=== PATIENT | male | born 1960 | race Caucasian/White ===

== ENCOUNTER 2019-05-20 00:43 | Outpatient (CLI) | payer SELFPAY | END 2019-05-20 00:44 | disposition critical access hospital (66) | LOC: EMS 00:43 | PROVIDERS: ATTEND Surgery | DX: S21.132A Puncture wound without foreign body of left front wall of thorax without penetration into thoracic cavity, initial encounter (principal); X99.1XXA Assault by knife, initial encounter | CPT/HCPCS: A0425; A0429 ==

== ENCOUNTER 2019-05-20 00:55 | Emergency (ER) | payer MEDICAID ==
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
[2019-05-20 01:12] LABS: BASOPHILS # (AUTO) 0.1 10^3/uL (0.0-0.1); EOSINOPHILS # (AUTO) 0.2 10^3/uL (0.0-0.7); EOSINOPHILS % (AUTO) 2.9 %; HGB - HEMOGLOBIN 14.6 g/dL (14.0-18.0); LYMPHOCYTES # (AUTO) 2.7 10^3/uL (1.5-3.5); LYMPHOCYTES % (AUTO) 31.7 %; MEAN CORPUSCULAR HEMOGLOBIN 29.4 pg (27.0-31.0); MEAN CORPUSCULAR HGB CONC 33.3 g/dL (32.0-36.0); MEAN CORPUSCULAR VOLUME 88.3 fL (80.0-94.0); MONOCYTES # (AUTO) 0.9 10^3/uL (0.0-1.0); MONOCYTES % (AUTO) 10.1 %; NEUTROPHILS # (AUTO) 4.6 10^3/uL (1.5-6.6); NEUTROPHILS % (AUTO) 54.1 %; PLT - PLATELET COUNT 265 10^3/uL (130-450); RED BLOOD COUNT 4.96 10^6/uL (4.70-6.10); RED CELL DISTRIBUTION WIDTH 13.9 % (12.0-15.0); WHITE BLOOD COUNT 8.4 x10^3/uL (4.8-10.8)
[2019-05-20] MEDS ORDERED: LIDOCAINE 2%-EPI 1:100000 20 ML MDV SUBQ STA (01:13)
[2019-05-20 01:18] LABS: INR 1.1 (0.8-1.2); PT - PROTHROMBIN TIME 12.2 secs (9.9-12.6)
[2019-05-20 01:24] LABS: ALBUMIN 4.2 g/dL (3.2-5.5); ALBUMIN/GLOBULIN RATIO 1.3 (1.0-2.2); ALKALINE PHOSPHATASE 50 IU/L (42-121); ALT ALANINE AMINOTRANSFERASE 27 IU/L (10-60); AST ASPARTATE AMINOTRANSFERASE 27 IU/L (10-42); BILIRUBIN,TOTAL 0.7 mg/dL (0.2-1.0); BUN - BLOOD UREA NITROGEN 9 mg/dL (6-20); CALCIUM 9.1 mg/dL (8.5-10.3); CARBON DIOXIDE - CO2 27 mmol/L (21-32); CHLORIDE 103 mmol/L (101-111); CREATININE 0.8 mg/dL (0.6-1.2); GFR - MDRD 100 (>89); GLUCOSE 109 mg/dL (70-100); LIPASE 32 U/L (22-51); SODIUM 141 mmol/L (135-145); TOTAL PROTEIN 7.4 g/dL (6.7-8.2)
[2019-05-20 01:25] LABS: PARTIAL THROMBOPLASTIN TIME 32.7 secs (24.9-33.3)
[2019-05-20 01:30] LABS: MUDS CUTOFF CONCENTRATIONS CUTOFF CONC BELOW:
[2019-05-20 01:33] LABS: BILIRUBIN,URINE NEGATIVE (NEGATIVE); GLUCOSE, URINE (UA) NEGATIVE (NEGATIVE); KETONES,URINE (UA) NEGATIVE (NEGATIVE); LEUKOCYTE ESTERASE, URINE NEGATIVE (NEGATIVE); NITRITE,URINE NEGATIVE (NEGATIVE); OCCULT BLOOD,URINE NEGATIVE (NEGATIVE); PROTEIN,URINE 100 mg/dL (NEGATIVE); UROBILINOGEN,URINE 0.2 (NORMAL) E.U./dL (NORMAL)
[2019-05-20] MEDS ORDERED: TETANUS/DIPHTHERIA/PERTUSSIS 0.5 ML SYRINGE IM ONE (01:39)
[2019-05-20 01:40] LABS: CLARITY,URINE CLEAR (CLEAR)
[2019-05-20] MEDS ORDERED: ceFAZolin 1 GM VIAL IM STA (01:43)
[2019-05-20] MEDS ORDERED: BACITRACIN OINT TOP STA (01:44)
[2019-05-20 01:50] LABS: BACTERIA,URINE Rare /HPF (None Seen); MUCUS,URINE Marked Strands; RBC,URINE None Seen /HPF (0-5); SQUAMOUS EPITHELIAL CELL,UR RARE Squamous (<= Few)
[2019-05-20 01:51] LABS: CASTS, URINE 3-5 Hyaline Casts /LPF; COCAINE SCREEN URINE NEGATIVE (NEGATIVE); METHAMPHETAMINES SCREEN, URINE POSITIVE (NEGATIVE); SPERM,URINE PRESENT
[2019-05-20 01:52] LABS: AMPHETAMINE SCREEN,URINE POSITIVE (NEGATIVE); BENZODIAZEPINES SCREEN, URINE NEGATIVE (NEGATIVE); METHADONE SCREEN, URINE NEGATIVE (NEGATIVE); OPIATE SCREEN, URINE NEGATIVE (NEGATIVE); OXYCODONE SCREEN, URINE NEGATIVE (NEGATIVE); PROPOXYPHENE SCREEN, URINE NEGATIVE (NEGATIVE); TRICYCLIC ANTIDEPRESSANT,URINE NEGATIVE (NEGATIVE)
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
[2019-05-20 03:05] VITALS: BP 122/91
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
[2019-05-20] MEDS ORDERED: BACITRACIN OINT TOP ONE (05:27)
== END 2019-05-20 02:43 | disposition home or self-care (01) ==
LOC: EDBD → ED 00:55
DX: S21.112A Laceration without foreign body of left front wall of thorax without penetration into thoracic cavity, initial encounter (principal); X99.1XXA Assault by knife, initial encounter
CPT/HCPCS: 12001; 36415; 71045; 80053; 80306; 80320; 81001; 83690; 85025; 85610; 85730; 90471; 90715; 96372; 99284; A9270; 81003; 86850; 86900; 86901; 87086

== ENCOUNTER 2019-05-28 08:22 | Emergency (ER) | payer MEDICAID ==
--- NOTE | 2019-05-28 08:27 | ED Physician Documentation ---
History of Present Illness - Stated complaint Stated Complaint: STAPLE REMOVAL - History obtained from History obtained from: Patient - Additonal information Additional information: Patient is a 56-year-old male presenting to the ED with request of staple removal. Patient was seen several days ago for left chest wound. Patient reports that he has been unable to take antibiotics as prescribed given an insurance issue. He reports minimal pain or other complaints related to the wound. Patient does report it feels itchy, but denies significant rash, redness, or drainage. Patient denies other skin changes or complications. No other improving or worsening factors noted. Review of Systems Skin: reports: Laceration (s) PD PAST MEDICAL HISTORY - Past Medical History Past Medical History: No - Past Surgical History Past Surgical History: No - Present Medications Home Medications: Ambulatory Orders Medication Instructions Recorded Confirmed Cephalexin [Keflex] 500 mg PO Q6H #28 capsule 05/20/19 - Allergies Allergies/Adverse Reactions: Allergies Allergy/AdvReac Type Severity Reaction Status Date / Time No Known Drug Allergies Allergy Verified 05/28/19 08:30 - Social History Does the pt smoke?: Yes Smoking Status: Current every day smoker Does the pt drink ETOH?: No Does the pt have substance abuse?: Yes - Immunizations Immunizations are current?: Yes Immunizations: TDAP current <10years - POLST Patient has POLST: No PD ED PE NORMAL - Vitals Vital signs reviewed: Yes - General General: Alert and oriented X 3, No acute distress, Well developed/nourished - HEENT HEENT: Atraumatic, Moist mucous membranes - Neck Neck: Supple, no meningeal sign - Respiratory Respiratory: No respiratory distress - Derm Derm: Other (Resolving bruising to left chest along anterior mid axillary line with several sherrell in place overlying wound. Relatively nontender to the touch and without surrounding signs of infection, drainage, or other complication.) - Extremities Extremities: No deformity, No tenderness to palpate - Neuro Neuro: Alert and oriented X 3, No motor deficit, No sensory deficit - Psych Psych: Normal mood, Normal affect Results - Vitals Vitals: Vital Signs - 24 hr 05/28/19 08:28 Temperature 36 C L Heart Rate 91 Respiratory 18 Rate Blood Pressure 149/110 H O2 Saturation 99 Oxygen O2 Source Room air PD MEDICAL DECISION MAKING - ED course Complexity details: reviewed old records, considered differential, d/w patient ED course: Patient presenting with request to remove sherrell from left chest wound. Wound appears to be healing appropriately without complication. Feel that it is appropriate to remove sherrell at this time and discussed wound care, return precautions, supportive cares, and follow-up. Patient voiced understanding and is comfortable with discharge plan. Departure - Departure Disposition: 01 Home, Self Care Clinical Impression: Removal of sherrell Condition: Good Instructions: ED Stap Removal No Complication Follow-Up: your,doctor [Other] - Within 3 Days Comments: Please keep wound clean and dry using running water and soap only to clean. Do not submerge underwater. Do not need to apply anything topical. Please be gentle with the area so as not to open wound. Follow-up with primary care physician in next 2 to 3 days return to ED sooner if experience signs of i nfection, wound reopening, complication or other concern.
[2019-05-28 08:30] VITALS: BP 149/110
== END 2019-05-28 08:39 | disposition home or self-care (01) ==
LOC: ED 08:22
DX: S21.112D Laceration without foreign body of left front wall of thorax without penetration into thoracic cavity, subsequent encounter (principal); F17.200 Nicotine dependence, unspecified, uncomplicated
CPT/HCPCS: 99281; 99282

== ENCOUNTER 2019-07-15 11:01 | Outpatient (CLI) | payer MEDICAID | END 2019-07-15 11:02 | disposition critical access hospital (66) | LOC: EMS 11:01 | PROVIDERS: ATTEND Surgery | DX: M54.5 Low back pain (principal); M25.551 Pain in right hip; W01.0XXA Fall on same level from slipping, tripping and stumbling without subsequent striking against object, initial encounter; Y92.512 Supermarket, store or market as the place of occurrence of the external cause | CPT/HCPCS: A0425; A0429; A0999 ==

== ENCOUNTER 2019-07-15 11:18 | Emergency (ER) | payer MEDICAID ==
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
[2019-07-15] MEDS ORDERED: NAPROXEN 250 MG TABLET PO STA (12:55)
[2019-07-15] MEDS ORDERED: ACETAMINOPHEN 325 MG TABLET PO STA (12:55)
[2019-07-15 13:16] LABS: BASOPHILS # (AUTO) 0.1 10^3/uL (0.0-0.1); BASOPHILS % (AUTO) 1.4 %; EOSINOPHILS # (AUTO) 0.4 10^3/uL (0.0-0.7); EOSINOPHILS % (AUTO) 5.9 %; HGB - HEMOGLOBIN 15.6 g/dL (14.0-18.0); LYMPHOCYTES # (AUTO) 2.1 10^3/uL (1.5-3.5); LYMPHOCYTES % (AUTO) 29.9 %; MEAN CORPUSCULAR HEMOGLOBIN 29.3 pg (27.0-31.0); MEAN CORPUSCULAR HGB CONC 33.5 g/dL (32.0-36.0); MEAN CORPUSCULAR VOLUME 87.2 fL (80.0-94.0); MEAN PLATELET VOLUME 9.8 fL (7.4-11.4); MONOCYTES # (AUTO) 0.8 10^3/uL (0.0-1.0); MONOCYTES % (AUTO) 10.9 %; NEUTROPHILS # (AUTO) 3.6 10^3/uL (1.5-6.6); NEUTROPHILS % (AUTO) 51.6 %; PLT - PLATELET COUNT 335 10^3/uL (130-450); RED BLOOD COUNT 5.33 10^6/uL (4.70-6.10); RED CELL DISTRIBUTION WIDTH 13.6 % (12.0-15.0)
[2019-07-15 13:26] LABS: ALBUMIN 3.6 g/dL (3.2-5.5); ALBUMIN/GLOBULIN RATIO 1.2 (1.0-2.2); BILIRUBIN,TOTAL 0.5 mg/dL (0.2-1.0); CALCIUM 8.9 mg/dL (8.5-10.3); CREATININE 0.8 mg/dL (0.6-1.2); MAGNESIUM 2.1 mg/dL (1.7-2.8); TOTAL PROTEIN 6.7 g/dL (6.7-8.2)
--- NOTE | 2019-07-15 13:58 | CT Report ---
Reason: fell on floor; pain neck and back Procedure Date: 07/15/2019 Accession Number: [id number] / [id number] Procedure: CT - CERVICAL SPINE WO CPT Code: FULL RESULT: EXAM: CT CERVICAL SPINE WITHOUT CONTRAST DATE: 07/15/2019 01:36 PM. HISTORY: Fell on floor; pain neck and back. COMPARISONS: None. TECHNIQUE: Thin-section axial images were acquired of the cervical spine without contrast. Post-processing: Coronal and sagittal reformats. Other: None. In accordance with CT protocol optimization, one or more of the following dose reduction techniques were utilized for this exam: automated exposure control, adjustment of mA and/or KV based on patient size, or use of iterative reconstructive technique. FINDINGS: Alignment: No scoliosis or spondylolisthesis. Bones: Incomplete/unfused anterior and posterior C1 arches are incidentally noted. No definite acute fractures. Interspace Levels/Facets: Moderate multilevel cervical disk degeneration most pronounced at C4-C5 through C6-C7. Moderate facet degeneration on the right at C3-C4. Otherwise minor facet degenerative changes. Musculature: Normal. No fatty atrophy. Other: The paravertebral and prevertebral soft tissues are unremarkable. The lung apices are clear. IMPRESSION: 1. No definite acute fracture or malalignment. 2. Multilevel cervical degeneration. RADIA
--- NOTE | 2019-07-15 14:04 | CT Report ---
Reason: fell on floor; pain neck and back Procedure Date: 07/15/2019 Accession Number: [id number] / [id number] Procedure: CT - LUMBAR SPINE WO CPT Code: FULL RESULT: EXAM: CT LUMBAR SPINE WITHOUT CONTRAST EXAM DATE: 07/15/2019 01:36 PM. CLINICAL HISTORY: Fell on floor; pain neck and back. COMPARISONS: None. TECHNIQUE: Thin-section axial images were acquired of the lumbar spine from T12 to S1 without contrast. Post-processing: Coronal and sagittal reformats. Other: None. In accordance with CT protocol optimization, one or more of the following dose reduction techniques were utilized for this exam: automated exposure control, adjustment of mA and/or KV based on patient size, or use of iterative reconstructive technique. FINDINGS: Alignment: No scoliosis or spondylolisthesis. Bones: Five [id number] lumbar vertebral bodies are present. No fractures or bone lesions. Disk Levels/Facets: There is advanced disk degeneration at L2-L3 with limbus vertebra and prominent anterior disk osteophyte complex. There is otherwise moderate multilevel disk degeneration most pronounced at L1-L2, L3-L4, L4-L5. Mild multilevel facet degeneration primarily at the mid to lower lumbar levels. There is evidence of multifactorial at least mild central narrowing at L2-L3, L3-L4, L4-L5, L5-S1. There is evidence of multifactorial at least mild bilateral bony neural foraminal stenosis at L3-L4 through L5-S1. Musculature: Normal. No fatty atrophy. Other: The visualized retroperitoneum is unremarkable. IMPRESSION: 1. No definite acute fracture or malalignment. 2. Multilevel lumbar degeneration. RADIA
[2019-07-15 14:15] VITALS: BP 118/92
--- NOTE | 2019-07-15 14:18 | CT Report ---
Reason: fell on floor; pain neck and back Procedure Date: 07/15/2019 Accession Number: [id number] / [id number] Procedure: CT - THORACIC SPINE WO CPT Code: FULL RESULT: EXAM: CT THORACIC SPINE WITHOUT CONTRAST EXAM DATE: 07/15/2019 01:36 PM. CLINICAL HISTORY: Fell on floor; pain neck and back. COMPARISONS: None. TECHNIQUE: Thin-section axial images were acquired of the thoracic spine from C7 to L1 without contrast. Post-processing: Coronal and sagittal reformats. Other: None. In accordance with CT protocol optimization, one or more of the following dose reduction techniques were utilized for this exam: automated exposure control, adjustment of mA and/or KV based on patient size, or use of iterative reconstructive technique. FINDINGS: Alignment: No scoliosis or spondylolisthesis. Bones: Chronic appearing minimal right-sided superior endplate depression at T8. No definite acute fracture. Disk Levels/Facets: Disk heights are largely preserved. There are mild to moderate multilevel thoracic degenerative endplate changes. No evidence of significant bony neurologic encroachment. Musculature: Normal. No fatty atrophy. Other: The visualized lungs, mediastinum, and abdominal cavity are unremarkable. IMPRESSION: 1. No definite acute fracture or malalignment. 2. Chronic appearing minimal asymmetric superior endplate depression at T8. 3. Multilevel thoracic degeneration. RADIA
== END 2019-07-15 14:20 | disposition home or self-care (01) ==
LOC: EDUNIT# → ED 11:18
DX: S30.0XXA Contusion of lower back and pelvis, initial encounter (principal); S20.229A Contusion of unspecified back wall of thorax, initial encounter; M25.511 Pain in right shoulder; W01.0XXA Fall on same level from slipping, tripping and stumbling without subsequent striking against object, initial encounter; Y92.512 Supermarket, store or market as the place of occurrence of the external cause; M51.36 Other intervertebral disc degeneration, lumbar region; M51.34 Other intervertebral disc degeneration, thoracic region; M50.321 Other cervical disc degeneration at C4-C5 level; F17.200 Nicotine dependence, unspecified, uncomplicated; Z59.0 Homelessness
CPT/HCPCS: 36415; 72125; 72128; 72131; 80053; 80320; 83690; 83735; 85025; 99283; 99284; A9270

== ENCOUNTER 2020-10-12 08:40 | Outpatient (CLI) | payer MEDICAID | END 2020-10-12 08:41 | disposition EMS.NT | LOC: EMS 08:40 | PROVIDERS: ATTEND Surgery | DX: R06.02 Shortness of breath (principal); R20.0 Anesthesia of skin ==

== ENCOUNTER 2021-03-10 | Outpatient (CLI) | payer MEDICAID | END 2021-03-10 07:26 | disposition critical access hospital (66) | CPT/HCPCS: A0425; A0429; A0999 ==

== ENCOUNTER 2021-03-10 07:52 | Inpatient (IN) | payer MEDICAID ==
[2021-03-10] MEDS ORDERED: cefTRIAXone 1 GM VIAL IVP STA (08:02)
[2021-03-10] MEDS ORDERED: LIDOCAINE 2%-EPI 1:100000 20 ML MDV SUBQ STA (08:02)
[2021-03-10] MEDS ORDERED: VANCOMYCIN INJ 1 GM in SODIUM CHLORIDE 0.9% 500 ML IV STA (08:02)
--- NOTE | 2021-03-10 08:08 | ED Physician Documentation ---
History of Present Illness - Stated complaint Stated Complaint: KNEE PX - Chief complaint Chief Complaint: Ext Problem - History obtained from History obtained from: Patient, EMS - History of Present Illness Timing: How many days ago (several) Pain level max: 7 Pain level now: 5 - Additonal information Additional information: 58-year-old male with a history of methamphetamine abuse presents to the emergency department with multiple sores on his legs, red swollen knee, now with streaking going up the inner aspect of the left thigh. Had subjective fevers and chills last night. Called EMS this morning. Worse with movement, better with rest. Review of Systems Ten Systems: 10 systems reviewed and negative Constitutional: reports: Fever, Chills Ears: denies: Ear pain Nose: denies: Rhinorrhea / runny nose Respiratory: denies: Cough GI: denies: Abdominal Pain, Nausea, Vomiting, Diarrhea Skin: denies: Rash Musculoskeletal: denies: Neck pain, Back pain Neurologic: denies: Headache PD PAST MEDICAL HISTORY - Past Medical History Cardiovascular: None Respiratory: None Neuro: None Endocrine/Autoimmune: None - Past Surgical History Past Surgical History: No - Allergies Allergies/Adverse Reactions: Allergies Allergy/AdvReac Type Severity Reaction Status Date / Time No Known Drug Allergies Allergy Verified 03/10/21 08:01 - Social History Does the pt smoke?: Yes Smoking Status: Current every day smoker Does the pt drink ETOH?: Yes Does the pt have substance abuse?: Yes - Immunizations Immunizations are current?: Yes Immunizations: TDAP current <10years - POLST Patient has POLST: No PD ED PE NORMAL - Vitals Vital signs reviewed: Yes - General General: Alert and oriented X 3, No acute distress - HEENT HEENT: Moist mucous membranes - Neck Neck: Supple, no meningeal sign - Cardiac Cardiac: RRR, Strong equal pulses - Respiratory Respiratory: No respiratory distress, Clear bilaterally - Derm Derm: Warm and dry - Extremities Extremities: No edema, No calf tenderness / cord, Other (Multiple healing sores to the bilateral lower extremities. The left knee has a prepatellar erythema, tenderness and swelling. There is no pain with palpation of the joint capsule or movement of the knee. There is a red streak going up the inner thigh towards the groin. No crepitus.) - Neuro Neuro: Alert and oriented X 3 Results - Vitals Vitals: Vital Signs - 24 hr 05/20/21 05/20/21 07:55 09:24 Temperature 38.1 C H 36.6 C Heart Rate 110 H 99 Respiratory 20 16 Rate Blood Pressure 140/87 H 129/77 O2 Saturation 99 100 Oxygen O2 Source Room air - Labs Labs: Microbiology 03/10/21 09:20 Wound Culture - Preliminary Abscess Laboratory Tests 03/10/21 03/10/21 03/10/21 09:04 09:04 09:20 WBC 21.6 H RBC 4.68 L Hgb 13.4 L Hct 41.7 L MCV 89.1 MCH 28.6 MCHC 32.1 RDW 14.1 Plt Count 316 MPV 10.0 Neut # (Auto) Not Reportable Lymph # (Auto) Not Reportable [place] # (Auto) Not Reportable Eos # (Auto) Not Reportable Baso # (Auto) Not Reportable Absolute Nucleated RBC Not Reportable Total Counted 100 Band Neuts % (Manual) 1 Abnorm Lymph % (Manual) 0 Nucleated RBC % Not Reportable Neutrophils # (Manual) 17.9 H Lymphocytes # (Manual) 1.9 Monocytes # (Manual) 1.7 H Eosinophils # (Manual) 0.0 Basophils # (Manual) 0.0 Differential Comment MANUAL DIFFERENTIAL Manual Slide Review Indicated Platelet Estimate NORMAL (130-450,000) Platelet Morphology NORMAL APPEARANCE RBC Morph Micro Appear NORMAL APPEARANCE Sodium 137 Potassium 3.6 Chloride 97 L Carbon Dioxide 31 Anion Gap 9.0 BUN 11 Creatinine 0.8 Estimated GFR (MDRD) 100 Glucose 137 H Lactic Acid Calcium 9.0 Total Bilirubin 0.7 AST 64 H ALT 124 H Alkaline Phosphatase 92 Total Protein 7.9 Albumin 3.4 Globulin 4.5 H Albumin/Globulin Ratio 0.8 L Lipase 24 Nasal Adenovirus (PCR) NOT DETECTED Nasal B. parapertussis DNA (PCR) NOT DETECTED Nasal Coronavir 229E PCR NOT DETECTED Nasal Coronavir HKU1 PCR NOT DETECTED Nasal Coronavir NL63 PCR NOT DETECTED Nasal Coronavir OC43 PCR NOT DETECTED Nasal Enterovir/Rhinovir PCR NOT DETECTED Nasal Influenza B PCR NOT DETECTED Nasal Influenza A PCR NOT DETECTED Nasal Parainfluen 1 PCR NOT DETECTED Nasal Parainfluen 2 PCR NOT DETECTED Nasal Parainfluen 3 PCR NOT DETECTED Nasal Parainfluen 4 PCR NOT DETECTED Nasal RSV (PCR) NOT DETECTED Nasal B.pertussis DNA PCR NOT DETECTED Nasal C.pneumoniae (PCR) NOT DETECTED Bruce Human Metapneumo PCR NOT DETECTED Nasal M.pneumoniae (PCR) NOT DETECTED Nasal SARS-CoV-2 (PCR) NOT DETECTED 03/10/21 09:26 WBC RBC Hgb Hct MCV MCH MCHC RDW Plt Count MPV Neut # (Auto) Lymph # (Auto) [place] # (Auto) Eos # (Auto) Baso # (Auto) Absolute Nucleated RBC Total Counted Band Neuts % (Manual) Abnorm Lymph % (Manual) Nucleated RBC % Neutrophils # (Manual) Lymphocytes # (Manual) Monocytes # (Manual) Eosinophils # (Manual) Basophils # (Manual) Differential Comment Manual Slide Review Platelet Estimate Platelet Morphology RBC Morph Micro Appear Sodium Potassium Chloride Carbon Dioxide Anion Gap BUN Creatinine Estimated GFR (MDRD) Glucose Lactic Acid 1.8 Calcium Total Bilirubin AST ALT Alkaline Phosphatase Total Protein Albumin Globulin Albumin/Globulin Ratio Lipase Nasal Adenovirus (PCR) Nasal B. parapertussis DNA (PCR) Nasal Coronavir 229E PCR Nasal Coronavir HKU1 PCR Nasal Coronavir NL63 PCR Nasal Coronavir OC43 PCR Nasal Enterovir/Rhinovir PCR Nasal Influenza B PCR Nasal Influenza A PCR Nasal Parainfluen 1 PCR Nasal Parainfluen 2 PCR Nasal Parainfluen 3 PCR Nasal Parainfluen 4 PCR Nasal RSV (PCR) Nasal B.pertussis DNA PCR Nasal C.pneumoniae (PCR) Bruce Human Metapneumo PCR Nasal M.pneumoniae (PCR) Nasal SARS-CoV-2 (PCR) Procedures - Abscess I&D (location) L knee Preparation: Confirmed with ultrasound, Chlorhexadine, Lidocaine 2 %, With epi Incision: Incised with scalpel, Purulent drainage, Irrigated, Packed, Culture obtained Other: Pt tolerated well, Dressing applied, Antibiotic prescribed PD MEDICAL DECISION MAKING - ED course Complexity details: reviewed results, re-evaluated patient, considered differential (no septic joint), d/w patient ED course: Patient with fever, cellulitis, abscess to the knee. This was incised and drained. Tolerated well. Concern for early sepsis. Given vancomycin and Rocephin. We will place in observation for further care. Discussed with Dr. Mejia, hospitalist who accepts This document was made in part using voice recognition software. While efforts are made to proofread this document, sound alike and grammatical errors may occur. Departure - Departure Disposition: [facility] DC/Xfer Clinical Impression: Abscess, Methamphetamine abuse Cellulitis Qualifiers: Site of cellulitis: extremity Site of cellulitis of extremity: lower extremity Laterality: left Qualified Code(s): L03.116 - Cellulitis of left lower limb Fever Qualifiers: Fever type: unspecified Qualified Code(s): R50.9 - Fever, unspecified Condition: Stable Discharge Date/Time: 03/10/21 11:35
[2021-03-10] MEDS ORDERED: VANCOMYCIN INJ 1 GM, VANCOMYCIN INJ 500 MG in SODIUM CHLORIDE 0.9% 500 ML IV STA (08:13)
[2021-03-10 09:16] LABS: BASOPHILS % (AUTO) 0.4 %; EOSINOPHILS % (AUTO) 0.9 %; HCT - HEMATOCRIT 41.7 % (42.0-52.0); HGB - HEMOGLOBIN 13.4 g/dL (14.0-18.0); LYMPHOCYTES % (AUTO) 6.2 %; MEAN CORPUSCULAR HEMOGLOBIN 28.6 pg (27.0-31.0); MEAN CORPUSCULAR HGB CONC 32.1 g/dL (32.0-36.0); MEAN CORPUSCULAR VOLUME 89.1 fL (80.0-94.0); MONOCYTES % (AUTO) 7.3 %; NEUTROPHILS % (AUTO) 84.5 %; PLT - PLATELET COUNT 316 10^3/uL (130-450); RED BLOOD COUNT 4.68 10^6/uL (4.70-6.10); RED CELL DISTRIBUTION WIDTH 14.1 % (12.0-15.0); WHITE BLOOD COUNT 21.6 x10^3/uL (4.8-10.8)
[2021-03-10 09:20] LABS: SLIDE REVIEW? Indicated
[2021-03-10 09:24] LABS: ALBUMIN 3.4 g/dL (3.2-5.5); ALBUMIN/GLOBULIN RATIO 0.8 (1.0-2.2); BILIRUBIN,TOTAL 0.7 mg/dL (0.2-1.0); CREATININE 0.8 mg/dL (0.6-1.2); POTASSIUM 3.6 mmol/L (3.5-5.0); TOTAL PROTEIN 7.9 g/dL (6.7-8.2)
[2021-03-10] MEDS ORDERED: MORPHINE 2 MG/ML CARPUJECT IVP STA (09:25)
[2021-03-10] MEDS ORDERED: SODIUM CHLORIDE 0.9% 1,000 ML IV STA ×2 (09:37)
[2021-03-10 09:42] LABS: ABNORMAL LYMPHS % (MANUAL) 0 %
[2021-03-10 09:44] LABS: BAND NEUTROPHILS % (MANUAL) 1 %; DIFFERENTIAL COMMENT MANUAL DIFFERENTIAL; LYMPHOCYTES # (MANUAL) 1.9 10^3/uL (1.5-3.5); LYMPHOCYTES % (MANUAL) 9 %; MONOCYTES # (MANUAL) 1.7 10^3/uL (0.0-1.0); NEUTROPHILS # (MANUAL) 17.9 10^3/uL (1.5-6.6); PLATELET ESTIMATE, MANUAL NORMAL (130-450,000) (NORMAL); PLATELET MORPHOLOGY NORMAL APPEARANCE (NORMAL); RBC MORPHOLOGY (MULTIPLE) NORMAL APPEARANCE (NORMAL)
[2021-03-10] MEDS ORDERED: ONDANSETRON 4 MG/2 ML VIAL IVP PRN (10:13)
[2021-03-10] MEDS ORDERED: SODIUM CHLORIDE FLUSH 0.9% 10 ML SYRINGE IVP PRN (10:13)
[2021-03-10] MEDS ORDERED: MORPHINE 2 MG/ML CARPUJECT IVP PRN (10:13)
--- NOTE | 2021-03-10 10:23 | HISTORY & PHYSICAL EXAMINATION ---
Chief Complaint - Chief Complaint Chief Complaint: cellulitis History of Present Illness - Admitted From Admitted From:: ER - History Obtained From Records Reviewed: [facility] History obtained from: pt Exam Limitations: no - History of Present Illness HPI Comment/Other: This is a 58-years old male with a medical history significant for Methamphetamine abuse, currently cigarette smoker, Present to ER complain left knee pain and redness in left leg. Patient reports 3-4 days Hx of sores on left lower extremity and became very painful, and left knee became swollen. He has tried warm soaks and topical anti-inflammatory medications but showed little help. There is erythema and warmth going up to the inner aspect of the left thigh from nearly above left ankle, with barely swelling. pt also has multiple superficial lesions in his bilateral lower extremities which appear to be healing. ER provider did aspiration of left knee and fluid was send for culture and staining. pt report the pain on his left knee is much improved after aspiration. Pt denies fever at home. pt was found 38.1 degree lower degree fever and tachycardia HR 110 at ER. lab test show significant elevated WBC 21.6. slight elevated liver enzyme and normal arrange lactic acid. Medical team was called to admit this pt for further management. Discussed the care goal with the patient, patient requires full code. History - Past Medical History Cardiovascular: reports: None Respiratory: reports: None Neuro: reports: None Endocrine/Autoimmune: reports: None : reports: None HEENT: reports: None Psych: reports: None Musculoskeletal: reports: None Derm: reports: None MRSA Hx?: No - Family & Social History Family History: Mother: Alive and Well, Father: Family History Comment/Other: Patient reported his father was heavy smoking, from COPD at the age 68. His mother is healthy and still alive at age 77 Social History Notes: Patient reported he still is cigarette smoker, and smoke methamphetamine 2 days ago - POLST Patient has POLST: No Meds/Allgy - Allergies Allergies/Adverse Reactions: Allergies Allergy/AdvReac Type Severity Reaction Status Date / Time No Known Drug Allergies Allergy Verified 03/10/21 08:01 Review of Systems - Constitutional Constitutional: denies: Fatigue, Fever, Chills, Weakness, Poor appetite - Eyes Eyes: denies: Pain, Field loss, Vision loss - Ears, Nose & Throat Ears, Nose & Throat: denies: Ear pain, Vertigo, Nosebleeds, Mouth lesions - Cardiovascular Cariovascular: denies: Irregular heart rate, Palpitations, Chest pain, Edema, Lightheadedness, Syncope, Exertional dyspnea, Decr. exercise tolerance - Respiratory Respiratory: denies: Cough, Sputum production, Wheezing, Hemoptysis, Orthopnea, SOB at rest, SOB with exertion - Gastrointestinal Gastrointestinal: denies: Abdominal pain, Diarrhea, Rectal bleeding, Black stools, Bloody stools, Nausea, Vomiting - Genitourinary Genitourinary: denies: Dysuria, Urgency, Hematuria, Incontinence - Musculoskeletal Musculoskeletal: reports: Limited range of motion, Joint swelling. denies: Back pain - Integumentary Integumentary: reports: Rash, Lesions - Neurological Neurological: denies: General weakness, Focal weakness, Headache, Dizziness, Numbness, Pre-existing deficit, Abnormal gait, Seizures, Incoordination, Slurred speech - Psychiatric Psychiatric: denies: Depression, Delusions - Endocrine Endocrine: denies: Polyuria, Polyphagia - Hematologic/Lymphatic Hematologic/Lymphatic: denies: Anemia, Blood clots Prior Level of Functionality: Patient is independent in the home Exam - Vital Signs Vital Signs: Vital Signs x48h Temp Pulse Resp BP Pulse Ox 03/10/21 09:24 36.6 C 99 16 129/77 100 03/10/21 07:55 38.1 C H 110 H 20 140/87 H 99 - Physical Exam General Appearance: positive: No acute distress, Alert. negative: Lethargic Eyes Bilateral: positive: Normal inspection, PERRL, No lid inflammation ENT: positive: ENT inspection nml, No signs of dehydration. negative: Purulent nasal drainage Neck: positive: Nml inspection, Trachea midline. negative: Thyromegaly, Tracheal deviation Respiratory: positive: Chest non-tender, No respiratory distress. negative: Wheezes, Rales, Rhonchi Cardiovascular: positive: Regular rate & rhythm, No murmur. negative: Tachycardia, Bradycardia, Systolic murmur, Diastolic murmur Peripheral Pulses: positive: 2+ Abdomen: positive: Non-tender, Nml bowel sounds, No distention. negative: Tenderness, Guarding Back: positive: Nml inspection Skin: positive: Color nml, Warm, Dry, Other (healing lesions at bilateral lower extremities. erythema at left lower extremity from above nearly above ankle to inner of thight. left knee was covered by surgical dressing.). negative: Cyanosis Extremities: positive: No pedal edema. negative: Calf tenderness Neurologic/Psychiatric: positive: Oriented x3, Motor nml, Sensation nml, Mood/affect nml. negative: Weakness, Sensory loss, Facial droop, Slurred/abnml speech, Depressed mood/affect Sepsis Event Note (H) - Evaluation Current Stage of Sepsis: Sepsis Possible source of Sepsis: positive: Skin/soft tissue - Sepsis Criteria Sepsis Criteria: Recorded Temperature greater than 38.3C or Less than 36C, Recorded Heart Rate greater than 90 bpm, WBC count greater than 10% bands, WBC count greater than 12,000 or less than 4000 Conclusion/Plan - Problem List (1) Sepsis Conclusion/Plan: pt present lower degree of fever, Tachycardia, significantly elevated WBC at 21. pt present Cellulitis at left lower extremity, and left knee pain and swollen. ER already started with antibiotics Rocephin and vancomycin, we will continue, We will give patient intravenous IV fluids, Blood culture is pending. left knee aspiration fluids culture is pending. (2) Cellulitis Conclusion/Plan: pt present cellulitis at his left lower extremity with erythema and warmth, and elevated WBC 21, lower degree of fever, and tachycardia. We will continue treated with Rocephin and vancomycin, continue intravenous IV fluids, continue laboratory and vital signs monitor. Qualifiers: Site of cellulitis: extremity Site of cellulitis of extremity: lower extremity Laterality: left Qualified Code(s): L03.116 - Cellulitis of left lower limb (3) Left anterior knee pain Conclusion/Plan: Patient reported Swollen and pain in the left knee, ER did aspiration from left knee, and fluid was sent for culture, will continue treated Rocephin and and vancomycin. consult with orthopedics, consult with OT, and continue pain control. 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 - Lab Results Fish Bones: 03/10/21 09:04 03/10/21 09:04 Core Measures - Anticipated LOS I expect patient to be DC'd or transferred within 96 hours.: Yes - DVT/VTE - Prophylaxis VTE/DVT Device ordered at admit?: Yes VTE/DVT Prophylaxis med ordered at admit?: Yes
[2021-03-10 10:29] LABS: B. PARAPERTUSSIS- RESP PCR PAN NOT DETECTED; B. PERTUSSIS- RESP PCR PANEL NOT DETECTED; C. PNEUMONIAE- RESP PCR PANEL NOT DETECTED; CORONAVIRUS 229E-RESP PCR NOT DETECTED; CORONAVIRUS HKU1-RESP PCR NOT DETECTED; CORONAVIRUS NL63-RESP PCR NOT DETECTED; CORONAVIRUS OC43-RESP PCR NOT DETECTED; HUMAN METAPNEUMOVIRUS NOT DETECTED; INFLUENZA A- RESP PCR PANEL NOT DETECTED; INFLUENZA B - RESP PCR PANEL NOT DETECTED; M. PNEUMONIAE- RESP PCR PANEL NOT DETECTED; PARAINFLUENZA VIRUS 1 NOT DETECTED; PARAINFLUENZA VIRUS 2 NOT DETECTED; PARAINFLUENZA VIRUS 3 NOT DETECTED; PARAINFLUENZA VIRUS 4 NOT DETECTED; RHINOVIRUS/ENTEROVIRUS NOT DETECTED; RSV- RESP PCR PANEL NOT DETECTED; SARS-CoV-2 -RESP PCR PANEL NOT DETECTED
--- NOTE | 2021-03-10 10:58 | PHARMACY PROGRESS NOTE ---
- Therapy Status Vancomycin regimen day #: 1 Therapy status: Awaiting steady state Basis for treatment: Empirical Treatment indication: CELLULITIS/ KNEE ABSCESS Trough goal: 15-20 Concurrent antibiotics: CEFTRIAXONE - JENNIFER Risk Risk level for Acute Kidney Injury: Low Acute Kidney Injury risk factors: Goal trough >15 - Monitoring and Recommendation Clinical response to treatment: I&O Previous 24 hours 03/08/21 03/09/21 03/10/21 23:59 23:59 23:59 Intake Total 1000 Balance 1000 Lab Results 03/10/21 09:04 BUN 11 Creatinine 0.8 Estimated GFR (MDRD) 100 Cultures 03/10/21 09:20 Abscess Wound Culture - Preliminary Monitoring plan: Daily serum creatinine Next trough due prior to maintenance dose #: 4 Next trough due (date/time): 03/12/21 AT 0830 Areas for additional monitoring: IV to PO when appropriate, Therapy de- escalation based on culture results Pharmacy recommendation: Continue current regime
--- NOTE | 2021-03-10 11:18 | PROVIDER PROGRESS NOTE ---
Subjective - Prog Note Date Prog Note Date: 03/10/21 Prog Note Time: 11:14 - Subjective Pt reports feeling: Worse (Patient comes to the emergency room for an evaluation of a painful swollen left knee. Patient apparently has had problems with skin infections in the past. Denies any diabetes. Over the last 3 to 4 days he noted multiple lesions which are superficial around his lower extremity. More painful) Objective - Vital Signs/Intake & Output Vital Signs: Vital Signs x48h Temp Pulse Resp BP Pulse Ox 03/10/21 10:43 104 H 16 123/74 98 03/10/21 09:24 36.6 C 99 16 129/77 100 03/10/21 07:55 38.1 C H 110 H 20 140/87 H 99 Intake & Output: Intake & Output 03/07/21 03/08/21 03/09/21 03/10/21 23:59 23:59 23:59 23:59 Intake Total 1000 Balance 1000 - Lab Results Fish Bones: 03/10/21 09:04 03/10/21 09:04 Other Labs: Lab Results x24hrs 03/10/21 03/10/21 03/10/21 Range/Units 09:26 09:20 09:04 WBC (4.8-10.8) x10^3/uL RBC (4.70-6.10) 10^6/uL Hgb (14.0-18.0) g/dL Hct (42.0-52.0) % MCV (80.0-94.0) fL MCH (27.0-31.0) pg MCHC (32.0-36.0) g/dL RDW (12.0-15.0) % Plt Count (130-450) 10^3/uL MPV (7.4-11.4) fL Neut # (Auto) Lymph # (Auto) [place] # (Auto) Eos # (Auto) Baso # (Auto) Absolute Nucleated RBC Total Counted Band Neuts % (Manual) (0 - 10) % Abnorm Lymph % (Manual) % Nucleated RBC % Neutrophils # (Manual) (1.5-6.6) 10^3/uL Lymphocytes # (Manual) (1.5-3.5) 10^3/uL Monocytes # (Manual) (0.0-1.0) 10^3/uL Eosinophils # (Manual) (0-0.7) 10^3/uL Basophils # (Manual) (0-0.1) 10^3/uL Differential Comment Manual Slide Review Platelet Estimate (NORMAL) Platelet Morphology (NORMAL) RBC Morph Micro Appear (NORMAL) Sodium 137 (135-145) mmol/L Potassium 3.6 (3.5-5.0) mmol/L Chloride 97 L (101-111) mmol/L Carbon Dioxide 31 (21-32) mmol/L Anion Gap 9.0 (6-13) BUN 11 (6-20) mg/dL Creatinine 0.8 (0.6-1.2) mg/dL Estimated GFR (MDRD) 100 (>89) Glucose 137 H (70-100) mg/dL Lactic Acid 1.8 (0.5-2.2) mmol/L Calcium 9.0 (8.5-10.3) mg/dL Total Bilirubin 0.7 (0.2-1.0) mg/dL AST 64 H (10-42) IU/L ALT 124 H (10-60) IU/L Alkaline Phosphatase 92 (42-121) IU/L Total Protein 7.9 (6.7-8.2) g/dL Albumin 3.4 (3.2-5.5) g/dL Globulin 4.5 H (2.1-4.2) g/dL Albumin/Globulin Ratio 0.8 L (1.0-2.2) Lipase 24 (22-51) U/L Nasal Adenovirus (PCR) NOT DETECTED Nasal B. parapertussis DNA (PCR) NOT DETECTED Nasal Coronavir 229E PCR NOT DETECTED Nasal Coronavir HKU1 PCR NOT DETECTED Nasal Coronavir NL63 PCR NOT DETECTED Nasal Coronavir OC43 PCR NOT DETECTED Nasal Enterovir/Rhinovir PCR NOT DETECTED Nasal Influenza B PCR NOT DETECTED Nasal Influenza A PCR NOT DETECTED Nasal Parainfluen 1 PCR NOT DETECTED Nasal Parainfluen 2 PCR NOT DETECTED Nasal Parainfluen 3 PCR NOT DETECTED Nasal Parainfluen 4 PCR NOT DETECTED Nasal RSV (PCR) NOT DETECTED Nasal B.pertussis DNA PCR NOT DETECTED Nasal C.pneumoniae (PCR) NOT DETECTED Bruce Human Metapneumo PCR NOT DETECTED Nasal M.pneumoniae (PCR) NOT DETECTED Nasal SARS-CoV-2 (PCR) NOT DETECTED 03/10/21 Range/Units 09:04 WBC 21.6 H (4.8-10.8) x10^3/uL RBC 4.68 L (4.70-6.10) 10^6/uL Hgb 13.4 L (14.0-18.0) g/dL Hct 41.7 L (42.0-52.0) % MCV 89.1 (80.0-94.0) fL MCH 28.6 (27.0-31.0) pg MCHC 32.1 (32.0-36.0) g/dL RDW 14.1 (12.0-15.0) % Plt Count 316 (130-450) 10^3/uL MPV 10.0 (7.4-11.4) fL Neut # (Auto) Not Reportable Lymph # (Auto) Not Reportable [place] # (Auto) Not Reportable Eos # (Auto) Not Reportable Baso # (Auto) Not Reportable Absolute Nucleated RBC Not Reportable Total Counted 100 Band Neuts % (Manual) 1 (0 - 10) % Abnorm Lymph % (Manual) 0 % Nucleated RBC % Not Reportable Neutrophils # (Manual) 17.9 H (1.5-6.6) 10^3/uL Lymphocytes # (Manual) 1.9 (1.5-3.5) 10^3/uL Monocytes # (Manual) 1.7 H (0.0-1.0) 10^3/uL Eosinophils # (Manual) 0.0 (0-0.7) 10^3/uL Basophils # (Manual) 0.0 (0-0.1) 10^3/uL Differential Comment MANUAL DIFFERENTIAL Manual Slide Review Indicated Platelet Estimate NORMAL (130-450,000) (NORMAL) Platelet Morphology NORMAL APPEARANCE (NORMAL) RBC Morph Micro Appear NORMAL APPEARANCE (NORMAL) Sodium (135-145) mmol/L Potassium (3.5-5.0) mmol/L Chloride (101-111) mmol/L Carbon Dioxide (21-32) mmol/L Anion Gap (6-13) BUN (6-20) mg/dL Creatinine (0.6-1.2) mg/dL Estimated GFR (MDRD) (>89) Glucose (70-100) mg/dL Lactic Acid (0.5-2.2) mmol/L Calcium (8.5-10.3) mg/dL Total Bilirubin (0.2-1.0) mg/dL AST (10-42) IU/L ALT (10-60) IU/L Alkaline Phosphatase (42-121) IU/L Total Protein (6.7-8.2) g/dL Albumin (3.2-5.5) g/dL Globulin (2.1-4.2) g/dL Albumin/Globulin Ratio (1.0-2.2) Lipase (22-51) U/L Nasal Adenovirus (PCR) Nasal B. parapertussis DNA (PCR) Nasal Coronavir 229E PCR Nasal Coronavir HKU1 PCR Nasal Coronavir NL63 PCR Nasal Coronavir OC43 PCR Nasal Enterovir/Rhinovir PCR Nasal Influenza B PCR Nasal Influenza A PCR Nasal Parainfluen 1 PCR Nasal Parainfluen 2 PCR Nasal Parainfluen 3 PCR Nasal Parainfluen 4 PCR Nasal RSV (PCR) Nasal B.pertussis DNA PCR Nasal C.pneumoniae (PCR) Bruce Human Metapneumo PCR Nasal M.pneumoniae (PCR) Nasal SARS-CoV-2 (PCR) - Other Results/Comments Other Results/Comments: On examination: Patient's left knee showed some mild swelling in the anterior prepatellar area of his left knee. Other superficial lesions in his left leg appear to be healing satisfactory. There is some generalized erythema in the leg as well. Evidence of some lymphangitis noted. The left knee has about 20 or 30 degrees of active range of motion of his knee with only minimal pain. Knee appears to be stable on stressing. Patient previously had an aspiration done by the emergency room doctor. The small aspiration wound has been packed with Nu Gauze. Neurovascularly he is intact distally in his lower extremity. Assessment/Plan - Problem List (1) Septic prepatellar bursitis of left knee Impression: -Patient has had progressive symptoms over the last 2 to 3 days. Has tried warm soaks and mild anti-inflammatory medications with little help. Symptoms again painful enough that he sought evaluation in the emergency room today. Plan: Does not appear as if the infection currently extends to the knee joint. We will treat this as a cellulitis to the leg along with prepatellar septic bursitis. As he has had a decompression of his bursa done in the emergency room we just minimize motion to his knee and begin him on broad-spectrum antibiotics to see if this improves over the next several days.I can follow with the medical service to see if his condition improves as anticipated. Should it worsen he may benefit from us surgical incision and drainage with washout as indicated.
[2021-03-10 12:55] LABS: BILIRUBIN,URINE NEGATIVE (NEGATIVE); GLUCOSE, URINE (UA) NEGATIVE (NEGATIVE); KETONES,URINE (UA) NEGATIVE (NEGATIVE); LEUKOCYTE ESTERASE, URINE NEGATIVE (NEGATIVE); MUDS CUTOFF CONCENTRATIONS CUTOFF CONC BELOW:; NITRITE,URINE NEGATIVE (NEGATIVE); OCCULT BLOOD,URINE NEGATIVE (NEGATIVE); PROTEIN,URINE TRACE mg/dL (NEGATIVE); UROBILINOGEN,URINE 1 (NORMAL) E.U./dL (NORMAL)
[2021-03-10 12:56] LABS: CLARITY,URINE CLEAR (CLEAR)
[2021-03-10 13:06] LABS: AMPHETAMINE SCREEN,URINE POSITIVE (NEGATIVE); BARBITURATE SCREEN,UR NEGATIVE (NEGATIVE); BENZODIAZEPINES SCREEN, URINE NEGATIVE (NEGATIVE); COCAINE SCREEN URINE NEGATIVE (NEGATIVE); METHADONE SCREEN, URINE NEGATIVE (NEGATIVE); METHAMPHETAMINES SCREEN, URINE POSITIVE (NEGATIVE); OPIATE SCREEN, URINE POSITIVE (NEGATIVE); OXYCODONE SCREEN, URINE NEGATIVE (NEGATIVE); PROPOXYPHENE SCREEN, URINE NEGATIVE (NEGATIVE); THC CANNABINOID SCREEN, URINE POSITIVE (NEGATIVE); TRICYCLIC ANTIDEPRESSANT,URINE NEGATIVE (NEGATIVE)
[2021-03-10] MEDS: ACETAMINOPHEN 325 MG TABLET PO PRN ×2 (17:10→23:07)
[2021-03-10] MEDS: oxyCODONE 5 MG TABLET PO PRN ×2 (17:10→23:07)
[2021-03-10] MEDS: SODIUM CHLORIDE 0.9% 1,000 ML IV SCH ×2 (17:11→18:04)
[2021-03-10] MEDS: SODIUM CHLORIDE FLUSH 0.9% 10 ML SYRINGE IVP SCH (17:11)
[2021-03-10] MEDS: VANCOMYCIN INJ 1 GM in SODIUM CHLORIDE 0.9% 250 ML IV SCH (21:00)
[2021-03-11] MEDS: SODIUM CHLORIDE FLUSH 0.9% 10 ML SYRINGE IVP SCH ×4 (00:32→23:47)
[2021-03-11] MEDS: SODIUM CHLORIDE 0.9% 1,000 ML IV SCH (04:33)
[2021-03-11 05:16] LABS: BASOPHILS # (AUTO) 0.1 10^3/uL (0.0-0.1); BASOPHILS % (AUTO) 0.5 %; EOSINOPHILS # (AUTO) 0.4 10^3/uL (0.0-0.7); EOSINOPHILS % (AUTO) 2.8 %; HCT - HEMATOCRIT 33.9 % (42.0-52.0); LYMPHOCYTES % (AUTO) 15.5 %; MEAN CORPUSCULAR HGB CONC 32.4 g/dL (32.0-36.0); MEAN CORPUSCULAR VOLUME 89.4 fL (80.0-94.0); MEAN PLATELET VOLUME 9.5 fL (7.4-11.4); MONOCYTES # (AUTO) 1.2 10^3/uL (0.0-1.0); MONOCYTES % (AUTO) 9.2 %; NEUTROPHILS # (AUTO) 9.2 10^3/uL (1.5-6.6); NEUTROPHILS % (AUTO) 71.5 %; PLT - PLATELET COUNT 269 10^3/uL (130-450); RED BLOOD COUNT 3.79 10^6/uL (4.70-6.10); RED CELL DISTRIBUTION WIDTH 14.3 % (12.0-15.0); WHITE BLOOD COUNT 12.9 x10^3/uL (4.8-10.8)
[2021-03-11 05:27] LABS: ALBUMIN 2.5 g/dL (3.2-5.5); ALBUMIN/GLOBULIN RATIO 0.7 (1.0-2.2); BILIRUBIN,TOTAL 0.8 mg/dL (0.2-1.0); CALCIUM 8.1 mg/dL (8.5-10.3); CREATININE 0.7 mg/dL (0.6-1.2); POTASSIUM 3.9 mmol/L (3.5-5.0); TOTAL PROTEIN 6.2 g/dL (6.7-8.2)
[2021-03-11] MEDS: cefTRIAXone 1 GM in SODIUM CHLORIDE 0.9% MINIBAG 100 ML IV SCH (09:24)
[2021-03-11] MEDS: ACETAMINOPHEN 325 MG TABLET PO PRN ×2 (09:31→17:20)
[2021-03-11] MEDS: SACCHAROMYCES BOULARDII 250 MG CAPSULE PO SCH ×2 (09:32→17:16)
[2021-03-11] MEDS: ENOXAPARIN 40 MG/0.4 ML SYRINGE SUBQ SCH (09:32)
[2021-03-11] MEDS: VANCOMYCIN INJ 1 GM in SODIUM CHLORIDE 0.9% 250 ML IV SCH ×2 (10:33→21:16)
--- NOTE | 2021-03-11 11:04 | PROVIDER PROGRESS NOTE ---
Assessment/Plan - Problem List (1) Sepsis Assessment/Plan: 03/11 pt report he feel better. His WBC is down to 13 from 22 at the admission. pt has no more fever. tachycardia is resolved. wound culture is pending. Blood culture is negative for bacteremia. continue antibiotics, continue vital and lab monitor pt present lower degree of fever, Tachycardia, significantly elevated WBC at 21. pt present Cellulitis at left lower extremity, and left knee pain and swollen. ER already started with antibiotics Rocephin and vancomycin, we will continue, We will give patient intravenous IV fluids, Blood culture is pending. left knee aspiration fluids culture is pending. (2) Cellulitis Conclusion/Plan: 03/11 improved. erythema is reduced, WBC is down to 13 from 22. continue antibiotics pt present cellulitis at his left lower extremity with erythema and warmth, and elevated WBC 21, lower degree of fever, and tachycardia. We will continue treated with Rocephin and vancomycin, continue intravenous IV fluids, continue laboratory and vital signs monitor. (3) Left anterior knee pain Conclusion/Plan: 03/11 pt was found to have abscess in anterior of left knee. ER provider did drainage and fluid was sent for culture which is pending. orthopedics was consulted for concern of joint infection. orthopedics order Knee immobilizer to left knee for pt, and hold PT/OT now. continue antibiotics and pain control. Patient reported Swollen and pain in the left knee, ER did aspiration from left knee, and fluid was sent for culture, will continue treated Rocephin and and vancomycin. consult with orthopedics, consult with OT, and continue pain control. 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 (2) Cellulitis Qualifiers: Site of cellulitis: extremity Site of cellulitis of extremity: lower extremity Laterality: left Qualified Code(s): L03.116 - Cellulitis of left lower limb - Current Meds Current Meds: Current Medications Generic Name Dose Route Start Last Admin Trade Name Freq PRN Reason Stop Dose Admin Acetaminophen 650 mg 03/10/21 10:13 03/11/21 09:31 Acetaminophen 325 Mg Tablet PO 650 mg Q4HR PRN Administration Pain 1 to 4 Enoxaparin Sodium 40 mg 03/11/21 09:00 03/11/21 09:32 Enoxaparin 40 Mg/0.4 Ml Syringe SUBQ 40 mg DAILY JOSE CRUZ Administration Ceftriaxone Sodium 1 gm/ 100 mls @ 200 mls/hr 03/11/21 09:00 03/11/21 09:54 Sodium Chloride IV Infused DAILY JOSE CRUZ Infusion Vancomycin HCl 1 gm/ Sodium 250 mls @ 167 mls/hr 03/10/21 21:00 03/11/21 10:33 Chloride IV 167 mls/hr Q12H JOSE CRUZ Administration Oxycodone HCl 5 mg 03/10/21 10:13 03/10/21 23:07 Oxycodone 5 Mg Tablet PO 5 mg Q4HR PRN Administration Pain 5 to 7 Saccharomyces Boulardii 250 mg 03/11/21 08:00 03/11/21 09:32 Saccharomyces Boulardii 250 Mg Capsule PO 250 mg BIDWM JOSE CRUZ Administration Sodium Chloride 10 ml 03/10/21 17:00 03/11/21 09:32 Sodium Chloride Flush 0.9% 10 Ml Syringe IVP 10 ml 0100,0900,1700 JOSE CRUZ Administration - Lab Result Fish Bone Diagrams: 03/11/21 05:00 03/11/21 05:00 - Additional Planning My Orders: My Active Orders 03/10/21 10:13 Activity Orders [RC] Q2HR IO [RC] IOSHIFT Initiate Bowel Care Protocol [RC] .protocol Initiate Line Care Protocol [RC] QSHIFT Initiate Personal Care Protoco [RC] .protocol Telemetry- [RC] Q4HR Vital Signs [RC] Q4HR Acetaminophen [Tylenol] 650 mg PO Q4HR PRN Morphine Inj (Carpuject) [Morphine (Carpuject)] 2 mg IVP Q2HR PRN Ondansetron Inj [Zofran Inj] 4 mg IVP Q6HR PRN Sodium Chloride Flush 0.9% [Normal Saline Flush 0.9%] 10 ml IVP PRN PRN oxyCODONE [Roxicodone] 5 mg PO Q4HR PRN Code Status [OTHERS] Routine Condition of Patient [OTHERS] Routine DVT Prophylaxis [OTHERS] Routine 03/10/21 10:15 IV Insert [RC] .ONCE 03/10/21 10:16 Orthopedics Consult [CONS] Routine 03/10/21 Lunch Regular Diet [DIET] 03/10/21 17:00 Sodium Chloride Flush 0.9% [Normal Saline Flush 0.9%] 10 ml IVP 0100,0900,1700 03/10/21 21:00 Vancomycin Inj [Vancomycin] 1 gm Sodium Chloride 0.9% [Normal Saline 0.9%] 250 ml IV Q12H 03/11/21 08:00 Saccharomyces Boulardii [Florastor] 250 mg PO BIDWM 03/11/21 09:00 Enoxaparin [Lovenox] 40 mg SUBQ DAILY cefTRIAXone [Rocephin] 1 gm Sodium Chloride 0.9% Minibag [Normal Saline 0.9% Minibag] 100 ml IV DAILY 03/12/21 05:00 CBC - COMP BLD CT W/AUTO DIFF [HEME] DAILYLAB CMP [COMPREHENSIVE METABOLIC PANEL] [CHEM] DAILYLAB 03/12/21 08:30 VANCOMYCIN TROUGH [CHEM] Timed 03/13/21 05:00 CBC - COMP BLD CT W/AUTO DIFF [HEME] DAILYLAB CMP [COMPREHENSIVE METABOLIC PANEL] [CHEM] DAILYLAB 03/14/21 05:00 CBC - COMP BLD CT W/AUTO DIFF [HEME] DAILYLAB CMP [COMPREHENSIVE METABOLIC PANEL] [CHEM] DAILYLAB 03/15/21 05:00 CBC - COMP BLD CT W/AUTO DIFF [HEME] DAILYLAB CMP [COMPREHENSIVE METABOLIC PANEL] [CHEM] DAILYLAB Subjective - Subjective Patient Reports: Feeling Better Objective Vital Signs: Vital Signs - 24 hr 03/10/21 03/10/21 03/10/21 11:38 13:00 15:44 Temperature 37.4 C 37.3 C 37.6 C Heart Rate [ Brachial] Heart Rate [ 102 H 109 H 109 H Monitoring electrodes] Respiratory 21 20 18 Rate Blood Pressure 131/73 H 125/72 132/68 H [Left Brachial artery] O2 Saturation 99 99 97 03/10/21 03/11/21 03/11/21 21:00 00:00 04:32 Temperature 36.9 C 37.3 C 37 C Heart Rate [ 103 H Brachial] Heart Rate [ 92 95 Monitoring electrodes] Respiratory 18 18 16 Rate Blood Pressure 110/65 117/61 118/66 [Left Brachial artery] O2 Saturation 98 95 95 03/11/21 08:30 Temperature 37.0 C Heart Rate [ 96 Brachial] Heart Rate [ Monitoring electrodes] Respiratory 20 Rate Blood Pressure 129/62 [Left Brachial artery] O2 Saturation 95 Oxygen O2 Source Room air I&O (Last 24 Hrs): Intake and Output Totals x24h 03/09/21 03/10/21 03/11/21 23:59 23:59 23:59 Intake Total 4951.667 1943 Output Total 1000 1700 Balance 3951.667 243 General: Alert, Oriented x3, Cooperative, No acute distress HEENT: Atraumatic, PERRLA Neck: Supple Lymphatic: no adenopathy Neuro: Alert, Non Focal, Oriented Times 3 Cardiovascular: Regular rate, Normal S1, Normal S2 Respiratory: Chest non-tender, No respiratory distress Abdomen: Normal bowel sounds, Soft, No tenderness Extremities: Normal pulses, Other (reduced anterior erythema and inner tigh erythema as well.) - Results Results: Laboratory Results WBC 12.9 x10^3/uL (4.8-10.8) H 03/11/21 05:00 RBC 3.79 10^6/uL (4.70-6.10) L 03/11/21 05:00 Hgb 11.0 g/dL (14.0-18.0) L 03/11/21 05:00 Hct 33.9 % (42.0-52.0) L 03/11/21 05:00 MCV 89.4 fL (80.0-94.0) 03/11/21 05:00 MCH 29.0 pg (27.0-31.0) 03/11/21 05:00 MCHC 32.4 g/dL (32.0-36.0) 03/11/21 05:00 RDW 14.3 % (12.0-15.0) 03/11/21 05:00 Plt Count 269 10^3/uL (130-450) 03/11/21 05:00 MPV 9.5 fL (7.4-11.4) 03/11/21 05:00 Neut # (Auto) 9.2 10^3/uL (1.5-6.6) H 03/11/21 05:00 Lymph # (Auto) 2.0 10^3/uL (1.5-3.5) 03/11/21 05:00 [place] # (Auto) 1.2 10^3/uL (0.0-1.0) H 03/11/21 05:00 Eos # (Auto) 0.4 10^3/uL (0.0-0.7) 03/11/21 05:00 Baso # (Auto) 0.1 10^3/uL (0.0-0.1) 03/11/21 05:00 Absolute Nucleated RBC 0.00 x10^3/uL 03/11/21 05:00 Total Counted 100 03/10/21 09:04 Band Neuts % (Manual) 1 % (0-10) 03/10/21 09:04 Abnorm Lymph % (Manual) 0 % 03/10/21 09:04 Nucleated RBC % 0.0 /100WBC 03/11/21 05:00 Neutrophils # (Manual) 17.9 10^3/uL (1.5-6.6) H 03/10/21 09:04 Lymphocytes # (Manual) 1.9 10^3/uL (1.5-3.5) 03/10/21 09:04 Monocytes # (Manual) 1.7 10^3/uL (0.0-1.0) H 03/10/21 09:04 Eosinophils # (Manual) 0.0 10^3/uL (0-0.7) 03/10/21 09:04 Basophils # (Manual) 0.0 10^3/uL (0-0.1) 03/10/21 09:04 Differential Comment MANUAL DIFFERENTIAL 03/10/21 09:04 Manual Slide Review Indicated 03/10/21 09:04 Platelet Estimate NORMAL (130-450,000) (NORMAL) 03/10/21 09:04 Platelet Morphology NORMAL APPEARANCE (NORMAL) 03/10/21 09:04 RBC Morph Micro Appear NORMAL APPEARANCE (NORMAL) 03/10/21 09:04 Sodium 137 mmol/L (135-145) 03/11/21 05:00 Potassium 3.9 mmol/L (3.5-5.0) 03/11/21 05:00 Chloride 104 mmol/L (101-111) 03/11/21 05:00 Carbon Dioxide 27 mmol/L (21-32) 03/11/21 05:00 Anion Gap 6.0 (6-13) 03/11/21 05:00 BUN 9 mg/dL (6-20) 03/11/21 05:00 Creatinine 0.7 mg/dL (0.6-1.2) 03/11/21 05:00 Estimated GFR (MDRD) 117 (>89) 03/11/21 05:00 Glucose 106 mg/dL (70-100) H 03/11/21 05:00 Lactic Acid 1.8 mmol/L (0.5-2.2) 03/10/21 09:26 Calcium 8.1 mg/dL (8.5-10.3) L 03/11/21 05:00 Total Bilirubin 0.8 mg/dL (0.2-1.0) 03/11/21 05:00 AST 49 IU/L (10-42) H 03/11/21 05:00 ALT 92 IU/L (10-60) H 03/11/21 05:00 Alkaline Phosphatase 82 IU/L (42-121) 03/11/21 05:00 Total Protein 6.2 g/dL (6.7-8.2) L 03/11/21 05:00 Albumin 2.5 g/dL (3.2-5.5) L 03/11/21 05:00 Globulin 3.7 g/dL (2.1-4.2) 03/11/21 05:00 Albumin/Globulin Ratio 0.7 (1.0-2.2) L 03/11/21 05:00 Lipase 24 U/L (22-51) 03/10/21 09:04 Urine Color YELLOW 03/10/21 12:41 Urine Clarity CLEAR (CLEAR) 03/10/21 12:41 Urine pH 6.0 PH (5.0-7.5) 03/10/21 12:41 Ur Specific [place] >=1.030 (1.002-1.030) H 03/10/21 12:41 Urine Protein TRACE mg/dL (NEGATIVE) 03/10/21 12:41 Urine Glucose (UA) NEGATIVE mg/dL (NEGATIVE) 03/10/21 12:41 Urine Ketones NEGATIVE mg/dL (NEGATIVE) 03/10/21 12:41 Urine Occult Blood NEGATIVE (NEGATIVE) 03/10/21 12:41 Urine Nitrite NEGATIVE (NEGATIVE) 03/10/21 12:41 Urine Bilirubin NEGATIVE (NEGATIVE) 03/10/21 12:41 Urine Urobilinogen 1 (NORMAL) E.U./dL (NORMAL) 03/10/21 12:41 Ur Leukocyte Esterase NEGATIVE (NEGATIVE) 03/10/21 12:41 Ur Microscopic Review NOT INDICATED 03/10/21 12:41 Urine Culture Comments NOT INDICATED 03/10/21 12:41 Nasal Adenovirus (PCR) NOT DETECTED 03/10/21 09:20 Nasal B. parapertussis DNA (PCR) NOT DETECTED 03/10/21 09:20 Nasal Coronavir 229E PCR NOT DETECTED 03/10/21 09:20 Nasal Coronavir HKU1 PCR NOT DETECTED 03/10/21 09:20 Nasal Coronavir NL63 PCR NOT DETECTED 03/10/21 09:20 Nasal Coronavir OC43 PCR NOT DETECTED 03/10/21 09:20 Nasal Enterovir/Rhinovir PCR NOT DETECTED 03/10/21 09:20 Nasal Influenza B PCR NOT DETECTED 03/10/21 09:20 Nasal Influenza A PCR NOT DETECTED 03/10/21 09:20 Nasal Parainfluen 1 PCR NOT DETECTED 03/10/21 09:20 Nasal Parainfluen 2 PCR NOT DETECTED 03/10/21 09:20 Nasal Parainfluen 3 PCR NOT DETECTED 03/10/21 09:20 Nasal Parainfluen 4 PCR NOT DETECTED 03/10/21 09:20 Nasal RSV (PCR) NOT DETECTED 03/10/21 09:20 Nasal B.pertussis DNA PCR NOT DETECTED 03/10/21 09:20 Nasal C.pneumoniae (PCR) NOT DETECTED 03/10/21 09:20 Bruce Human Metapneumo PCR NOT DETECTED 03/10/21 09:20 Nasal M.pneumoniae (PCR) NOT DETECTED 03/10/21 09:20 Nasal SARS-CoV-2 (PCR) NOT DETECTED 03/10/21 09:20 Urine Opiates Screen POSITIVE (NEGATIVE) H 03/10/21 12:41 Ur Oxycodone Screen NEGATIVE (NEGATIVE) 03/10/21 12:41 Urine Methadone Screen NEGATIVE (NEGATIVE) 03/10/21 12:41 Ur Propoxyphene Screen NEGATIVE (NEGATIVE) 03/10/21 12:41 Ur Barbiturates Screen NEGATIVE (NEGATIVE) 03/10/21 12:41 Ur Tricyclics Screen NEGATIVE (NEGATIVE) 03/10/21 12:41 Ur Phencyclidine Scrn NEGATIVE (NEGATIVE) 03/10/21 12:41 Ur Amphetamine Screen POSITIVE (NEGATIVE) H 03/10/21 12:41 U Methamphetamines Scrn POSITIVE (NEGATIVE) H 03/10/21 12:41 U Benzodiazepines Scrn NEGATIVE (NEGATIVE) 03/10/21 12:41 Urine Cocaine Screen NEGATIVE (NEGATIVE) 03/10/21 12:41 U Cannabinoids Screen POSITIVE (NEGATIVE) H 03/10/21 12:41 Sepsis Event Note (H) - Evaluation Current Stage of Sepsis: Sepsis Possible source of Sepsis: positive: Skin/soft tissue - Sepsis Criteria Sepsis Criteria: Recorded Temperature greater than 38.3C or Less than 36C, Recorded Heart Rate greater than 90 bpm, WBC count greater than 10% bands, WBC count greater than 12,000 or less than 4000 ABX Reporting Has patient been on IV antibiotics over the past 48 hours?: Yes Current Medications - Current Medications Current Medications: Active Medications Acetaminophen (Acetaminophen 325 Mg Tablet) 650 mg PO Q4HR PRN PRN Reason: Pain 1 to 4 Last Admin: 03/11/21 09:31 Dose: 650 mg Documented by: Enoxaparin Sodium (Enoxaparin 40 Mg/0.4 Ml Syringe) 40 mg SUBQ DAILY [facility] Last Admin: 03/11/21 09:32 Dose: 40 mg Documented by: Ceftriaxone Sodium 1 gm/ (Sodium Chloride) 100 mls @ 200 mls/hr IV DAILY [facility] Last Infusion: 03/11/21 09:54 Dose: Infused Documented by: Vancomycin HCl 1 gm/ Sodium (Chloride) 250 mls @ 167 mls/hr IV Q12H [facility] Last Admin: 03/11/21 10:33 Dose: 167 mls/hr Documented by: Morphine Sulfate (Morphine 2 Mg/Ml Carpuject) 2 mg IVP Q2HR PRN PRN Reason: Pain 8 to 10 Ondansetron HCl (Ondansetron 4 Mg/2 Ml Vial) 4 mg IVP Q6HR PRN PRN Reason: Nausea / Vomiting Oxycodone HCl (Oxycodone 5 Mg Tablet) 5 mg PO Q4HR PRN PRN Reason: Pain 5 to 7 Last Admin: 03/10/21 23:07 Dose: 5 mg Documented by: Saccharomyces Boulardii (Saccharomyces Boulardii 250 Mg Capsule) 250 mg PO BIDWM [facility] Last Admin: 03/11/21 09:32 Dose: 250 mg Documented by: Sodium Chloride (Sodium Chloride Flush 0.9% 10 Ml Syringe) 10 ml IVP PRN PRN PRN Reason: NEEDED PER PROVIDER ORDERS Sodium Chloride (Sodium Chloride Flush 0.9% 10 Ml Syringe) 10 ml IVP 0100,0900,1700 [facility] Last Admin: 03/11/21 09:32 Dose: 10 ml Documented by:
[2021-03-11] MEDS: MULTIVITAMIN W/MINERALS TABLET PO SCH (12:30)
--- NOTE | 2021-03-11 15:02 | PROVIDER PROGRESS NOTE ---
Subjective - Prog Note Date Prog Note Date: 03/11/21 Prog Note Time: 15:00 - Subjective Pt reports feeling: Improved (Less pain) Objective - Vital Signs/Intake & Output Vital Signs: Vital Signs x48h Temp Pulse Resp BP Pulse Ox 03/11/21 12:01 36.8 C 86 18 110/69 99 03/11/21 08:30 37.0 C 96 20 129/62 95 Intake & Output: Intake & Output 03/08/21 03/09/21 03/10/21 03/11/21 23:59 23:59 23:59 23:59 Intake Total 4951.667 2693 Output Total 1000 2000 Balance 3951.667 693 - Lab Results Fish Bones: 03/11/21 05:00 03/11/21 05:00 Other Labs: Lab Results x24hrs 03/11/21 03/11/21 Range/Units 05:00 05:00 WBC 12.9 H (4.8-10.8) x10^3/uL RBC 3.79 L (4.70-6.10) 10^6/uL Hgb 11.0 L (14.0-18.0) g/dL Hct 33.9 L (42.0-52.0) % MCV 89.4 (80.0-94.0) fL MCH 29.0 (27.0-31.0) pg MCHC 32.4 (32.0-36.0) g/dL RDW 14.3 (12.0-15.0) % Plt Count 269 (130-450) 10^3/uL MPV 9.5 (7.4-11.4) fL Neut # (Auto) 9.2 H (1.5-6.6) 10^3/uL Lymph # (Auto) 2.0 (1.5-3.5) 10^3/uL [place] # (Auto) 1.2 H (0.0-1.0) 10^3/uL Eos # (Auto) 0.4 (0.0-0.7) 10^3/uL Baso # (Auto) 0.1 (0.0-0.1) 10^3/uL Absolute Nucleated RBC 0.00 x10^3/uL Nucleated RBC % 0.0 /100WBC Sodium 137 (135-145) mmol/L Potassium 3.9 (3.5-5.0) mmol/L Chloride 104 (101-111) mmol/L Carbon Dioxide 27 (21-32) mmol/L Anion Gap 6.0 (6-13) BUN 9 (6-20) mg/dL Creatinine 0.7 (0.6-1.2) mg/dL Estimated GFR (MDRD) 117 (>89) Glucose 106 H (70-100) mg/dL Calcium 8.1 L (8.5-10.3) mg/dL Total Bilirubin 0.8 (0.2-1.0) mg/dL AST 49 H (10-42) IU/L ALT 92 H (10-60) IU/L Alkaline Phosphatase 82 (42-121) IU/L Total Protein 6.2 L (6.7-8.2) g/dL Albumin 2.5 L (3.2-5.5) g/dL Globulin 3.7 (2.1-4.2) g/dL Albumin/Globulin Ratio 0.7 L (1.0-2.2) - Other Results/Comments Other Results/Comments: EXAM: Left knee: Less swollen and red. Minimally tender. Scant drainage. [place]ug[place]ze wick removed without problem. Minimal drainage afterwards. ROM: 10-80 degrees without pain. Sepsis Event Note (H) - Evaluation Current Stage of Sepsis: Sepsis Possible source of Sepsis: positive: Skin/soft tissue - Sepsis Criteria Sepsis Criteria: Recorded Temperature greater than 38.3C or Less than 36C, Recorded Heart Rate greater than 90 bpm, WBC count greater than 10% bands, WBC count greater than 12,000 or less than 4000 Assessment/Plan - Problem List (1) Septic prepatellar bursitis of left knee Impression: Improved PLAN: Knee immobilizer for another day or so, then out of brace AROM of knee. Weight bearing as tolerated on left. Antibiotics per medicine. Follow up with PCP as needed.
[2021-03-12 05:09] LABS: BASOPHILS # (AUTO) 0.1 10^3/uL (0.0-0.1); BASOPHILS % (AUTO) 0.9 %; EOSINOPHILS # (AUTO) 0.4 10^3/uL (0.0-0.7); EOSINOPHILS % (AUTO) 3.8 %; HCT - HEMATOCRIT 38.8 % (42.0-52.0); HGB - HEMOGLOBIN 12.6 g/dL (14.0-18.0); LYMPHOCYTES # (AUTO) 1.7 10^3/uL (1.5-3.5); LYMPHOCYTES % (AUTO) 16.9 %; MEAN CORPUSCULAR HEMOGLOBIN 28.8 pg (27.0-31.0); MEAN CORPUSCULAR HGB CONC 32.5 g/dL (32.0-36.0); MEAN CORPUSCULAR VOLUME 88.8 fL (80.0-94.0); MEAN PLATELET VOLUME 9.6 fL (7.4-11.4); MONOCYTES # (AUTO) 1.1 10^3/uL (0.0-1.0); MONOCYTES % (AUTO) 10.4 %; NEUTROPHILS # (AUTO) 6.9 10^3/uL (1.5-6.6); NEUTROPHILS % (AUTO) 67.5 %; PLT - PLATELET COUNT 326 10^3/uL (130-450); RED BLOOD COUNT 4.37 10^6/uL (4.70-6.10); RED CELL DISTRIBUTION WIDTH 14.3 % (12.0-15.0); WHITE BLOOD COUNT 10.2 x10^3/uL (4.8-10.8)
[2021-03-12 05:24] LABS: ALBUMIN 2.8 g/dL (3.2-5.5); ALBUMIN/GLOBULIN RATIO 0.7 (1.0-2.2); BILIRUBIN,TOTAL 0.5 mg/dL (0.2-1.0); CALCIUM 8.8 mg/dL (8.5-10.3); CREATININE 0.7 mg/dL (0.6-1.2); TOTAL PROTEIN 6.9 g/dL (6.7-8.2)
[2021-03-12] MEDS: SODIUM CHLORIDE FLUSH 0.9% 10 ML SYRINGE IVP SCH ×2 (08:25→16:29)
[2021-03-12] MEDS: ENOXAPARIN 40 MG/0.4 ML SYRINGE SUBQ SCH (08:26)
[2021-03-12] MEDS: SACCHAROMYCES BOULARDII 250 MG CAPSULE PO SCH ×2 (08:26→16:29)
[2021-03-12] MEDS: MULTIVITAMIN W/MINERALS TABLET PO SCH (08:26)
[2021-03-12 08:29] LABS: VANCOMYCIN,TROUGH 7.3 ug/mL (10.0-20.0)
[2021-03-12] MEDS: cefTRIAXone 1 GM in SODIUM CHLORIDE 0.9% MINIBAG 100 ML IV SCH (08:29)
[2021-03-12] MEDS: VANCOMYCIN INJ 1 GM in SODIUM CHLORIDE 0.9% 250 ML IV SCH ×2 (10:14→18:33)
[2021-03-12] MEDS: ACETAMINOPHEN 325 MG TABLET PO PRN (12:30)
--- NOTE | 2021-03-12 12:32 | PROVIDER PROGRESS NOTE ---
Assessment/Plan - Problem List (1) Septic prepatellar bursitis of left knee Assessment/Plan: There is less pain. Dr. Paredes, orthopedic surgeon thought he was improving with current management. Continue with pain meds as needed and IV antibiotics for the 2 bacteria found on cultures. Orthopedics advised that he can start increasing knee mobility by tomorrow. (2) MRSA cellulitis Assessment/Plan: As per wound cultures. Continue with IV Vanco (3) Streptococcal cellulitis Assessment/Plan: As per wound cultures. Continue with IV Vanco, the ceftriaxone will be stopped. Cont Florastor (4) Methamphetamine abuse Assessment/Plan: As per Hx. He was seen in consultation by web content & social media manager and he declined any assistance in rehab from substance abuse. (5) Psoriasis with pustules Assessment/Plan: A large furuncle/pustule is present of the left lateral davies. He has other flat psoriatic plaques and several that have become pustules and are now healing with a central scab. 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 He has black discoloration under his nails and states that even when he uses them to bacterial wipes, "a black fuzzy covering returns". We will give a course of treatment with antifungal Diflucan orally (7) Sepsis Assessment/Plan: Resolved - Current Meds Current Meds: Current Medications Generic Name Dose Route Start Last Admin Trade Name Freq PRN Reason Stop Dose Admin Acetaminophen 650 mg 03/10/21 10:13 03/12/21 12:30 Acetaminophen 325 Mg Tablet PO 650 mg Q4HR PRN Administration Pain 1 to 4 Enoxaparin Sodium 40 mg 03/11/21 09:00 03/12/21 08:26 Enoxaparin 40 Mg/0.4 Ml Syringe SUBQ 40 mg DAILY JOSE CRUZ Administration Vancomycin HCl 1 gm/ Sodium 250 mls @ 167 mls/hr 03/12/21 10:00 03/12/21 10:14 Chloride IV 167 mls/hr Q8H JOSE CRUZ Administration Multivitamins/Minerals 1 tab 03/11/21 12:00 03/12/21 08:26 Multivitamin W/Minerals Tablet PO 1 tab DAILYWM JOSE CRUZ Administration Oxycodone HCl 5 mg 03/10/21 10:13 03/10/21 23:07 Oxycodone 5 Mg Tablet PO 5 mg Q4HR PRN Administration Pain 5 to 7 Saccharomyces Boulardii 250 mg 03/11/21 08:00 03/12/21 08:26 Saccharomyces Boulardii 250 Mg Capsule PO 250 mg BIDWM JOSE CRUZ Administration Sodium Chloride 10 ml 03/10/21 17:00 03/12/21 08:25 Sodium Chloride Flush 0.9% 10 Ml Syringe IVP 10 ml 0100,0900,1700 JOSE CRUZ Administration - Lab Result Fish Bone Diagrams: 03/12/21 04:53 03/12/21 04:53 Subjective - Subjective Patient Reports: Feeling Better, Resting Comfortably, Other (Describes black fuzzy areas on his body and thinks he was exposed to mold at work. His left knee is less painful and he can even bear weight on L leg slightly) Objective Vital Signs: Vital Signs - 24 hr 03/11/21 03/11/21 03/12/21 16:37 19:59 00:00 Temperature 36.6 C 36.7 C 37.2 C Heart Rate [ 88 96 89 Brachial] Respiratory 20 18 18 Rate Blood Pressure 128/82 H 127/72 134/75 H [Left Brachial artery] O2 Saturation 100 99 96 03/12/21 03/12/21 06:55 07:55 Temperature 36.5 C 36.9 C Heart Rate [ 86 88 Brachial] Respiratory 18 18 Rate Blood Pressure 131/78 H 129/85 H [Left Brachial artery] O2 Saturation 95 98 Oxygen O2 Source Room air I&O (Last 24 Hrs): Intake and Output Totals x24h 03/10/21 03/11/21 03/12/21 23:59 23:59 23:59 Intake Total 4951.667 3683 1340 Output Total 1000 3300 2375 Balance 3951.667 383 1035 General: Alert HEENT: Mucous membr. moist/pink, Other (Upper mouth is edentulous. He is emaciated.) Neck: Supple, No JVD Neuro: Alert, Non Focal Cardiovascular: Regular rate Respiratory: No respiratory distress Abdomen: Soft Extremities: No edema, Other (Several flat psoriatic plaques are seen on the body. A furuncle is seen of the left lateral davies and several furuncles that have started healing with a central scab are seen.) - Results Results: Laboratory Results WBC 10.2 x10^3/uL (4.8-10.8) 03/12/21 04:53 RBC 4.37 10^6/uL (4.70-6.10) L 03/12/21 04:53 Hgb 12.6 g/dL (14.0-18.0) L 03/12/21 04:53 Hct 38.8 % (42.0-52.0) L 03/12/21 04:53 MCV 88.8 fL (80.0-94.0) 03/12/21 04:53 MCH 28.8 pg (27.0-31.0) 03/12/21 04:53 MCHC 32.5 g/dL (32.0-36.0) 03/12/21 04:53 RDW 14.3 % (12.0-15.0) 03/12/21 04:53 Plt Count 326 10^3/uL (130-450) 03/12/21 04:53 MPV 9.6 fL (7.4-11.4) 03/12/21 04:53 Neut # (Auto) 6.9 10^3/uL (1.5-6.6) H 03/12/21 04:53 Lymph # (Auto) 1.7 10^3/uL (1.5-3.5) 03/12/21 04:53 [place] # (Auto) 1.1 10^3/uL (0.0-1.0) H 03/12/21 04:53 Eos # (Auto) 0.4 10^3/uL (0.0-0.7) 03/12/21 04:53 Baso # (Auto) 0.1 10^3/uL (0.0-0.1) 03/12/21 04:53 Absolute Nucleated RBC 0.00 x10^3/uL 03/12/21 04:53 Total Counted 100 03/10/21 09:04 Band Neuts % (Manual) 1 % (0-10) 03/10/21 09:04 Abnorm Lymph % (Manual) 0 % 03/10/21 09:04 Nucleated RBC % 0.0 /100WBC 03/12/21 04:53 Neutrophils # (Manual) 17.9 10^3/uL (1.5-6.6) H 03/10/21 09:04 Lymphocytes # (Manual) 1.9 10^3/uL (1.5-3.5) 03/10/21 09:04 Monocytes # (Manual) 1.7 10^3/uL (0.0-1.0) H 03/10/21 09:04 Eosinophils # (Manual) 0.0 10^3/uL (0-0.7) 03/10/21 09:04 Basophils # (Manual) 0.0 10^3/uL (0-0.1) 03/10/21 09:04 Differential Comment MANUAL DIFFERENTIAL 03/10/21 09:04 Manual Slide Review Indicated 03/10/21 09:04 Platelet Estimate NORMAL (130-450,000) (NORMAL) 03/10/21 09:04 Platelet Morphology NORMAL APPEARANCE (NORMAL) 03/10/21 09:04 RBC Morph Micro Appear NORMAL APPEARANCE (NORMAL) 03/10/21 09:04 Sodium 140 mmol/L (135-145) 03/12/21 04:53 Potassium 4.0 mmol/L (3.5-5.0) 03/12/21 04:53 Chloride 104 mmol/L (101-111) 03/12/21 04:53 Carbon Dioxide 27 mmol/L (21-32) 03/12/21 04:53 Anion Gap 9.0 (6-13) 03/12/21 04:53 BUN 11 mg/dL (6-20) 03/12/21 04:53 Creatinine 0.7 mg/dL (0.6-1.2) 03/12/21 04:53 Estimated GFR (MDRD) 117 (>89) 03/12/21 04:53 Glucose 109 mg/dL (70-100) H 03/12/21 04:53 Lactic Acid 1.8 mmol/L (0.5-2.2) 03/10/21 09:26 Calcium 8.8 mg/dL (8.5-10.3) 03/12/21 04:53 Total Bilirubin 0.5 mg/dL (0.2-1.0) 03/12/21 04:53 AST 73 IU/L (10-42) H 03/12/21 04:53 ALT 114 IU/L (10-60) H 03/12/21 04:53 Alkaline Phosphatase 126 IU/L (42-121) H 03/12/21 04:53 Total Protein 6.9 g/dL (6.7-8.2) 03/12/21 04:53 Albumin 2.8 g/dL (3.2-5.5) L 03/12/21 04:53 Globulin 4.1 g/dL (2.1-4.2) 03/12/21 04:53 Albumin/Globulin Ratio 0.7 (1.0-2.2) L 03/12/21 04:53 Lipase 24 U/L (22-51) 03/10/21 09:04 Urine Color YELLOW 03/10/21 12:41 Urine Clarity CLEAR (CLEAR) 03/10/21 12:41 Urine pH 6.0 PH (5.0-7.5) 03/10/21 12:41 Ur Specific [place] >=1.030 (1.002-1.030) H 03/10/21 12:41 Urine Protein TRACE mg/dL (NEGATIVE) 03/10/21 12:41 Urine Glucose (UA) NEGATIVE mg/dL (NEGATIVE) 03/10/21 12:41 Urine Ketones NEGATIVE mg/dL (NEGATIVE) 03/10/21 12:41 Urine Occult Blood NEGATIVE (NEGATIVE) 03/10/21 12:41 Urine Nitrite NEGATIVE (NEGATIVE) 03/10/21 12:41 Urine Bilirubin NEGATIVE (NEGATIVE) 03/10/21 12:41 Urine Urobilinogen 1 (NORMAL) E.U./dL (NORMAL) 03/10/21 12:41 Ur Leukocyte Esterase NEGATIVE (NEGATIVE) 03/10/21 12:41 Ur Microscopic Review NOT INDICATED 03/10/21 12:41 Urine Culture Comments NOT INDICATED 03/10/21 12:41 Nasal Adenovirus (PCR) NOT DETECTED 03/10/21 09:20 Nasal B. parapertussis DNA (PCR) NOT DETECTED 03/10/21 09:20 Nasal Coronavir 229E PCR NOT DETECTED 03/10/21 09:20 Nasal Coronavir HKU1 PCR NOT DETECTED 03/10/21 09:20 Nasal Coronavir NL63 PCR NOT DETECTED 03/10/21 09:20 Nasal Coronavir OC43 PCR NOT DETECTED 03/10/21 09:20 Nasal Enterovir/Rhinovir PCR NOT DETECTED 03/10/21 09:20 Nasal Influenza B PCR NOT DETECTED 03/10/21 09:20 Nasal Influenza A PCR NOT DETECTED 03/10/21 09:20 Nasal Parainfluen 1 PCR NOT DETECTED 03/10/21 09:20 Nasal Parainfluen 2 PCR NOT DETECTED 03/10/21 09:20 Nasal Parainfluen 3 PCR NOT DETECTED 03/10/21 09:20 Nasal Parainfluen 4 PCR NOT DETECTED 03/10/21 09:20 Nasal RSV (PCR) NOT DETECTED 03/10/21 09:20 Nasal B.pertussis DNA PCR NOT DETECTED 03/10/21 09:20 Nasal C.pneumoniae (PCR) NOT DETECTED 03/10/21 09:20 [place] Human Metapneumo PCR NOT DETECTED 03/10/21 09:20 Nasal M.pneumoniae (PCR) NOT DETECTED 03/10/21 09:20 Nasal SARS-CoV-2 (PCR) NOT DETECTED 03/10/21 09:20 Last Dose Date 03/11/21 03/12/21 08:15 Last Dose Time 2245 03/12/21 08:15 Vancomycin Trough 7.3 ug/mL (10.0-20.0) L 03/12/21 08:15 Urine Opiates Screen POSITIVE (NEGATIVE) 03/10/21 12:41 Ur Oxycodone Screen NEGATIVE (NEGATIVE) 03/10/21 12:41 Urine Methadone Screen NEGATIVE (NEGATIVE) 03/10/21 12:41 Ur Propoxyphene Screen NEGATIVE (NEGATIVE) 03/10/21 12:41 Ur Barbiturates Screen NEGATIVE (NEGATIVE) 03/10/21 12:41 Ur Tricyclics Screen NEGATIVE (NEGATIVE) 03/10/21 12:41 Ur Phencyclidine Scrn NEGATIVE (NEGATIVE) 03/10/21 12:41 Ur Amphetamine Screen POSITIVE (NEGATIVE) 03/10/21 12:41 U Methamphetamines Scrn POSITIVE (NEGATIVE) H 03/10/21 12:41 U Benzodiazepines Scrn NEGATIVE (NEGATIVE) 03/10/21 12:41 Urine Cocaine Screen NEGATIVE (NEGATIVE) 03/10/21 12:41 U Cannabinoids Screen POSITIVE (NEGATIVE) 03/10/21 12:41 Sepsis Event Note (H) - Evaluation Current Stage of Sepsis: Sepsis Possible source of Sepsis: positive: Skin/soft tissue - Sepsis Criteria Sepsis Criteria: Recorded Temperature greater than 38.3C or Less than 36C, Recorded Heart Rate greater than 90 bpm, WBC count greater than 10% bands, WBC count greater than 12,000 or less than 4000
[2021-03-12] MEDS: FLUCONAZOLE 100 MG TABLET PO SCH (16:29)
[2021-03-13] MEDS: VANCOMYCIN INJ 1 GM in SODIUM CHLORIDE 0.9% 250 ML IV SCH ×2 (01:28→09:25)
[2021-03-13] MEDS: SODIUM CHLORIDE FLUSH 0.9% 10 ML SYRINGE IVP SCH ×4 (01:28→23:58)
[2021-03-13 06:02] LABS: BASOPHILS # (AUTO) 0.1 10^3/uL (0.0-0.1); BASOPHILS % (AUTO) 1.1 %; EOSINOPHILS # (AUTO) 0.5 10^3/uL (0.0-0.7); EOSINOPHILS % (AUTO) 4.8 %; HCT - HEMATOCRIT 42.6 % (42.0-52.0); HGB - HEMOGLOBIN 13.7 g/dL (14.0-18.0); LYMPHOCYTES # (AUTO) 2.2 10^3/uL (1.5-3.5); LYMPHOCYTES % (AUTO) 20.1 %; MEAN CORPUSCULAR HEMOGLOBIN 28.2 pg (27.0-31.0); MEAN CORPUSCULAR HGB CONC 32.2 g/dL (32.0-36.0); MEAN CORPUSCULAR VOLUME 87.7 fL (80.0-94.0); MEAN PLATELET VOLUME 9.4 fL (7.4-11.4); MONOCYTES # (AUTO) 1.1 10^3/uL (0.0-1.0); MONOCYTES % (AUTO) 10.2 %; NEUTROPHILS # (AUTO) 6.9 10^3/uL (1.5-6.6); NEUTROPHILS % (AUTO) 63.3 %; PLT - PLATELET COUNT 396 10^3/uL (130-450); RED BLOOD COUNT 4.86 10^6/uL (4.70-6.10); RED CELL DISTRIBUTION WIDTH 14.2 % (12.0-15.0); WHITE BLOOD COUNT 10.9 x10^3/uL (4.8-10.8)
[2021-03-13 06:16] LABS: ALBUMIN/GLOBULIN RATIO 0.7 (1.0-2.2); BILIRUBIN,TOTAL 0.7 mg/dL (0.2-1.0); CALCIUM 9.1 mg/dL (8.5-10.3); CREATININE 0.7 mg/dL (0.6-1.2); POTASSIUM 4.1 mmol/L (3.5-5.0); TOTAL PROTEIN 7.5 g/dL (6.7-8.2)
--- NOTE | 2021-03-13 08:09 | PROVIDER PROGRESS NOTE ---
Assessment/Plan - Problem List (1) Septic prepatellar bursitis of left knee Assessment/Plan: There is less pain. Dr. Paredes, orthopedic surgeon thought he was improving with current management. Will change his iv antibx to po Clindamycin, based on sensitivities, as his knee and thigh cellulitis has clinically improved. Continue with pain meds as needed. Orthopedics advised that he can start increasing knee mobility starting today. May shower, covering the bandaged knee. (2) MRSA cellulitis Assessment/Plan: As per wound cultures. Will change IV Vanco to po Clindamycin. A total of 14 days of antibx is planned. Continue Florastor. If he tolerates Clinda po, and if LFTs stabilize or improve, will plan DCh home tomorrow. (3) Streptococcal cellulitis Assessment/Plan: As per wound cultures. Change IV Vanco to po Clinda (as above). Cont Florastor Plan as in #2 (4) Transaminitis Assessment/Plan: His liver function tests jassi on the second day here. His AST is less than his ALT, therefore this is not a pattern of alcohol abuse. I suspect it may be due to his sepsis at presentation, or from drugs. Will check TSH to rule out hypothyroidism which may be causing a fatty liver. W ill consider liver imaging to eval for a fatty liver. Will obtain CK to assess for muscle pathology. We will obtain TIBC to assess for hemochromatosis. We will obtain GGT to assess if this is liver origin or nonliver origin. Will obtain viral Hepatitis panel. Avoid hepatotoxins. (5) Methamphetamine abuse Assessment/Plan: As per Hx. He was seen in consultation by social science analyst and he declined any assistance in rehab from substance abuse. (6) Psoriasis with pustules Assessment/Plan: A large furuncle/pustule is present of the left lateral davies. He has other flat psoriatic plaques and several that have become pustules and are now healing with a central scab. 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 He has black discoloration under his nails and states that even when he uses them to bacterial wipes, "a black fuzzy covering returns". We will give a 3-day course of treatment with antifungal Diflucan orally (8) Sepsis Assessment/Plan: Resolved - Current Meds Current Meds: Current Medications Generic Name Dose Route Start Last Admin Trade Name Freq PRN Reason Stop Dose Admin Acetaminophen 650 mg 03/10/21 10:13 03/12/21 12:30 Acetaminophen 325 Mg Tablet PO 650 mg Q4HR PRN Administration Pain 1 to 4 Enoxaparin Sodium 40 mg 03/11/21 09:00 03/12/21 08:26 Enoxaparin 40 Mg/0.4 Ml Syringe SUBQ 40 mg DAILY JOSE CRUZ Administration Fluconazole 100 mg 03/12/21 15:24 03/12/21 16:29 Fluconazole 100 Mg Tablet PO 100 mg DAILY JOSE CRUZ Administration Vancomycin HCl 1 gm/ Sodium 250 mls @ 167 mls/hr 03/12/21 10:00 03/13/21 03:06 Chloride IV Infused Q8H JOSE CRUZ Infusion Multivitamins/Minerals 1 tab 03/11/21 12:00 03/12/21 08:26 Multivitamin W/Minerals Tablet PO 1 tab DAILYWM JOSE CRUZ Administration Oxycodone HCl 5 mg 03/10/21 10:13 03/10/21 23:07 Oxycodone 5 Mg Tablet PO 5 mg Q4HR PRN Administration Pain 5 to 7 Saccharomyces Boulardii 250 mg 03/11/21 08:00 03/12/21 16:29 Saccharomyces Boulardii 250 Mg Capsule PO 250 mg BIDWM JOSE CRUZ Administration Sodium Chloride 10 ml 03/10/21 17:00 03/13/21 01:28 Sodium Chloride Flush 0.9% 10 Ml Syringe IVP 10 ml 0100,0900,1700 JOSE CRUZ Administration - Lab Result Fish Bone Diagrams: 03/13/21 05:40 03/13/21 05:40 - Additional Planning My Orders: My Active Orders 03/12/21 15:24 Fluconazole [Diflucan] 100 mg PO DAILY 03/12/21 15:25 Miscellaenous Nursing Order [RC] QSHIFT 03/13/21 05:00 CK- CREATINE KINASE [CHEM] Routine GAMMA GLUTAMYL TRANSPEPTIDASE [CHEM] Routine HEPATITIS ACUTE PANEL W CONF [REFLAB] Routine IRON TIBC PANEL [CHEM] Routine TSH [THYROID STIMULATING HORMONE] [IAI] Routine 03/14/21 09:00 VANCOMYCIN TROUGH [CHEM] Timed Subjective - Subjective Patient Reports: Feeling Better, Resting Comfortably, No Complaints, Other (Wants to take a shower) Objective Vital Signs: Vital Signs - 24 hr 03/12/21 03/12/21 03/12/21 13:20 16:27 20:37 Temperature 37.0 C 36.7 C 37 C Heart Rate [ 88 79 87 Brachial] Heart Rate [ Monitoring electrodes] Respiratory 16 18 18 Rate Blood Pressure 133/71 H 126/85 H 136/83 H [Left Brachial artery] O2 Saturation 100 99 99 03/13/21 03/13/21 03/13/21 01:00 06:00 07:51 Temperature 36.9 C 36.9 C 36.6 C Heart Rate [ 86 Brachial] Heart Rate [ 87 86 Monitoring electrodes] Respiratory 18 16 97 H Rate Blood Pressure 141/77 H 151/94 H 140/87 H [Left Brachial artery] O2 Saturation 95 97 18 L Oxygen O2 Source Room air I&O (Last 24 Hrs): Intake and Output Totals x24h 03/11/21 03/12/21 03/13/21 23:59 23:59 23:59 Intake Total 3683 3335 250 Output Total 3300 3200 1150 Balance 383 135 -900 General: Alert, Oriented x3 HEENT: Mucous membr. moist/pink Neck: Supple, No JVD Neuro: Alert, Non Focal Cardiovascular: Regular rate Respiratory: No respiratory distress Abdomen: Soft, No tenderness Extremities: Other (L knee bandaged, L davies has separate bandage) Comments/Notes: Several large psorriatic lesions: L hand, R arm, L thigh, R calf with pustule, L davies (pustule bandaged) - Results Results: Laboratory Results WBC 10.9 x10^3/uL (4.8-10.8) H 03/13/21 05:40 RBC 4.86 10^6/uL (4.70-6.10) 03/13/21 05:40 Hgb 13.7 g/dL (14.0-18.0) L 03/13/21 05:40 Hct 42.6 % (42.0-52.0) 03/13/21 05:40 MCV 87.7 fL (80.0-94.0) 03/13/21 05:40 MCH 28.2 pg (27.0-31.0) 03/13/21 05:40 MCHC 32.2 g/dL (32.0-36.0) 03/13/21 05:40 RDW 14.2 % (12.0-15.0) 03/13/21 05:40 Plt Count 396 10^3/uL (130-450) 03/13/21 05:40 MPV 9.4 fL (7.4-11.4) 03/13/21 05:40 Neut # (Auto) 6.9 10^3/uL (1.5-6.6) H 03/13/21 05:40 Lymph # (Auto) 2.2 10^3/uL (1.5-3.5) 03/13/21 05:40 [place] # (Auto) 1.1 10^3/uL (0.0-1.0) H 03/13/21 05:40 Eos # (Auto) 0.5 10^3/uL (0.0-0.7) 03/13/21 05:40 Baso # (Auto) 0.1 10^3/uL (0.0-0.1) 03/13/21 05:40 Absolute Nucleated RBC 0.00 x10^3/uL 03/13/21 05:40 Total Counted 100 03/10/21 09:04 Band Neuts % (Manual) 1 % (0-10) 03/10/21 09:04 Abnorm Lymph % (Manual) 0 % 03/10/21 09:04 Nucleated RBC % 0.0 /100WBC 03/13/21 05:40 Neutrophils # (Manual) 17.9 10^3/uL (1.5-6.6) H 03/10/21 09:04 Lymphocytes # (Manual) 1.9 10^3/uL (1.5-3.5) 03/10/21 09:04 Monocytes # (Manual) 1.7 10^3/uL (0.0-1.0) H 03/10/21 09:04 Eosinophils # (Manual) 0.0 10^3/uL (0-0.7) 03/10/21 09:04 Basophils # (Manual) 0.0 10^3/uL (0-0.1) 03/10/21 09:04 Differential Comment MANUAL DIFFERENTIAL 03/10/21 09:04 Manual Slide Review Indicated 03/10/21 09:04 Platelet Estimate NORMAL (130-450,000) (NORMAL) 03/10/21 09:04 Platelet Morphology NORMAL APPEARANCE (NORMAL) 03/10/21 09:04 RBC Morph Micro Appear NORMAL APPEARANCE (NORMAL) 03/10/21 09:04 Sodium 139 mmol/L (135-145) 03/13/21 05:40 Potassium 4.1 mmol/L (3.5-5.0) 03/13/21 05:40 Chloride 104 mmol/L (101-111) 03/13/21 05:40 Carbon Dioxide 27 mmol/L (21-32) 03/13/21 05:40 Anion Gap 8.0 (6-13) 03/13/21 05:40 BUN 14 mg/dL (6-20) 03/13/21 05:40 Creatinine 0.7 mg/dL (0.6-1.2) 03/13/21 05:40 Estimated GFR (MDRD) 117 (>89) 03/13/21 05:40 Glucose 100 mg/dL (70-100) 03/13/21 05:40 Lactic Acid 1.8 mmol/L (0.5-2.2) 03/10/21 09:26 Calcium 9.1 mg/dL (8.5-10.3) 03/13/21 05:40 Total Bilirubin 0.7 mg/dL (0.2-1.0) 03/13/21 05:40 AST 53 IU/L (10-42) H 03/13/21 05:40 ALT 109 IU/L (10-60) H 03/13/21 05:40 Alkaline Phosphatase 129 IU/L (42-121) H 03/13/21 05:40 Total Protein 7.5 g/dL (6.7-8.2) 03/13/21 05:40 Albumin 3.0 g/dL (3.2-5.5) L 03/13/21 05:40 Globulin 4.5 g/dL (2.1-4.2) H 03/13/21 05:40 Albumin/Globulin Ratio 0.7 (1.0-2.2) L 03/13/21 05:40 Lipase 24 U/L (22-51) 03/10/21 09:04 Urine Color YELLOW 03/10/21 12:41 Urine Clarity CLEAR (CLEAR) 03/10/21 12:41 Urine pH 6.0 PH (5.0-7.5) 03/10/21 12:41 Ur Specific [place] >=1.030 (1.002-1.030) H 03/10/21 12:41 Urine Protein TRACE mg/dL (NEGATIVE) 03/10/21 12:41 Urine Glucose (UA) NEGATIVE mg/dL (NEGATIVE) 03/10/21 12:41 Urine Ketones NEGATIVE mg/dL (NEGATIVE) 03/10/21 12:41 Urine Occult Blood NEGATIVE (NEGATIVE) 03/10/21 12:41 Urine Nitrite NEGATIVE (NEGATIVE) 03/10/21 12:41 Urine Bilirubin NEGATIVE (NEGATIVE) 03/10/21 12:41 Urine Urobilinogen 1 (NORMAL) E.U./dL (NORMAL) 03/10/21 12:41 Ur Leukocyte Esterase NEGATIVE (NEGATIVE) 03/10/21 12:41 Ur Microscopic Review NOT INDICATED 03/10/21 12:41 Urine Culture Comments NOT INDICATED 03/10/21 12:41 Nasal Adenovirus (PCR) NOT DETECTED 03/10/21 09:20 Nasal B. parapertussis DNA (PCR) NOT DETECTED 03/10/21 09:20 Nasal Coronavir 229E PCR NOT DETECTED 03/10/21 09:20 Nasal Coronavir HKU1 PCR NOT DETECTED 03/10/21 09:20 Nasal Coronavir NL63 PCR NOT DETECTED 03/10/21 09:20 Nasal Coronavir OC43 PCR NOT DETECTED 03/10/21 09:20 Nasal Enterovir/Rhinovir PCR NOT DETECTED 03/10/21 09:20 Nasal Influenza B PCR NOT DETECTED 03/10/21 09:20 Nasal Influenza A PCR NOT DETECTED 03/10/21 09:20 Nasal Parainfluen 1 PCR NOT DETECTED 03/10/21 09:20 Nasal Parainfluen 2 PCR NOT DETECTED 03/10/21 09:20 Nasal Parainfluen 3 PCR NOT DETECTED 03/10/21 09:20 Nasal Parainfluen 4 PCR NOT DETECTED 03/10/21 09:20 Nasal RSV (PCR) NOT DETECTED 03/10/21 09:20 Nasal B.pertussis DNA PCR NOT DETECTED 03/10/21 09:20 Nasal C.pneumoniae (PCR) NOT DETECTED 03/10/21 09:20 Bruce Human Metapneumo PCR NOT DETECTED 03/10/21 09:20 Nasal M.pneumoniae (PCR) NOT DETECTED 03/10/21 09:20 Nasal SARS-CoV-2 (PCR) NOT DETECTED 03/10/21 09:20 Last Dose Date 03/11/21 03/12/21 08:15 Last Dose Time 224403/12/21 08:15 Vancomycin Trough 7.3 ug/mL (10.0-20.0) L 03/12/21 08:15 Urine Opiates Screen POSITIVE (NEGATIVE) H 03/10/21 12:41 Ur Oxycodone Screen NEGATIVE (NEGATIVE) 03/10/21 12:41 Urine Methadone Screen NEGATIVE (NEGATIVE) 03/10/21 12:41 Ur Propoxyphene Screen NEGATIVE (NEGATIVE) 03/10/21 12:41 Ur Barbiturates Screen NEGATIVE (NEGATIVE) 03/10/21 12:41 Ur Tricyclics Screen NEGATIVE (NEGATIVE) 03/10/21 12:41 Ur Phencyclidine Scrn NEGATIVE (NEGATIVE) 03/10/21 12:41 Ur Amphetamine Screen POSITIVE (NEGATIVE) H 03/10/21 12:41 U Methamphetamines Scrn POSITIVE (NEGATIVE) H 03/10/21 12:41 U Benzodiazepines Scrn NEGATIVE (NEGATIVE) 03/10/21 12:41 Urine Cocaine Screen NEGATIVE (NEGATIVE) 03/10/21 12:41 U Cannabinoids Screen POSITIVE (NEGATIVE) H 03/10/21 12:41 Sepsis Event Note (H) - Evaluation Current Stage of Sepsis: Sepsis Possible source of Sepsis: positive: Skin/soft tissue - Sepsis Criteria Sepsis Criteria: Recorded Temperature greater than 38.3C or Less than 36C, Recorded Heart Rate greater than 90 bpm, WBC count greater than 10% bands, WBC count greater than 12,000 or less than 4000
[2021-03-13] MEDS: ENOXAPARIN 40 MG/0.4 ML SYRINGE SUBQ SCH (08:16)
[2021-03-13] MEDS: SACCHAROMYCES BOULARDII 250 MG CAPSULE PO SCH ×2 (08:16→17:05)
[2021-03-13] MEDS: FLUCONAZOLE 100 MG TABLET PO SCH (08:16)
[2021-03-13] MEDS: MULTIVITAMIN W/MINERALS TABLET PO SCH (08:16)
[2021-03-13 09:35] LABS: % IRON SATURATION 23 % (20-50); CK- CREATINE KINASE 56 IU/L (22-269); GAMMA GLUTAMYL TRANSPEPTIDASE 119 IU/L (8-55); IRON 59 ug/dL (45-182); TOTAL IRON BINDING CAPACITY 253 ug/dL (250-450); TRANSFERRIN 181 mg/dL (180-329)
--- NOTE | 2021-03-13 12:37 | PHARMACY PROGRESS NOTE ---
- Best Possible Medication History Admit Date and Time: 03/10/21 1013 Processed by: Nursing Medication History completed: Yes As the person ultimately responsible for medication therapy, providers are able to order a medication from an existing home medication list in [facility] via the "Reconcile Routine" prior to Confirmation of that medication by support services coordinator. Such practice is discouraged except when the physician, in their clinical judgment, deems that a medical need exists for a medication without regard to previous use.
[2021-03-13] MEDS: CLINDAMYCIN 150 MG CAPSULE PO SCH ×2 (13:33→21:38)
[2021-03-13] MEDS: ACETAMINOPHEN 325 MG TABLET PO PRN (13:42)
[2021-03-13] MEDS: oxyCODONE 5 MG TABLET PO PRN (21:38)
[2021-03-14 05:00] LABS: BASOPHILS # (AUTO) 0.1 10^3/uL (0.0-0.1); BASOPHILS % (AUTO) 1.1 %; EOSINOPHILS # (AUTO) 0.6 10^3/uL (0.0-0.7); EOSINOPHILS % (AUTO) 5.3 %; HCT - HEMATOCRIT 43.7 % (42.0-52.0); HGB - HEMOGLOBIN 13.9 g/dL (14.0-18.0); LYMPHOCYTES # (AUTO) 2.5 10^3/uL (1.5-3.5); LYMPHOCYTES % (AUTO) 21.2 %; MEAN CORPUSCULAR HEMOGLOBIN 27.9 pg (27.0-31.0); MEAN CORPUSCULAR HGB CONC 31.8 g/dL (32.0-36.0); MEAN CORPUSCULAR VOLUME 87.8 fL (80.0-94.0); MEAN PLATELET VOLUME 9.3 fL (7.4-11.4); MONOCYTES # (AUTO) 1.3 10^3/uL (0.0-1.0); MONOCYTES % (AUTO) 10.7 %; NEUTROPHILS # (AUTO) 7.2 10^3/uL (1.5-6.6); NEUTROPHILS % (AUTO) 60.6 %; PLT - PLATELET COUNT 421 10^3/uL (130-450); RED BLOOD COUNT 4.98 10^6/uL (4.70-6.10); RED CELL DISTRIBUTION WIDTH 14.4 % (12.0-15.0); WHITE BLOOD COUNT 11.9 x10^3/uL (4.8-10.8)
[2021-03-14] MEDS: CLINDAMYCIN 150 MG CAPSULE PO SCH ×2 (05:03→13:15)
[2021-03-14 05:13] LABS: ALBUMIN/GLOBULIN RATIO 0.7 (1.0-2.2); BILIRUBIN,TOTAL 0.3 mg/dL (0.2-1.0); CALCIUM 8.5 mg/dL (8.5-10.3); CREATININE 0.9 mg/dL (0.6-1.2); POTASSIUM 4.1 mmol/L (3.5-5.0); TOTAL PROTEIN 7.4 g/dL (6.7-8.2)
[2021-03-14] MEDS: SACCHAROMYCES BOULARDII 250 MG CAPSULE PO SCH (08:47)
[2021-03-14] MEDS: MULTIVITAMIN W/MINERALS TABLET PO SCH (08:47)
[2021-03-14] MEDS: FLUCONAZOLE 100 MG TABLET PO SCH (08:47)
[2021-03-14] MEDS: SODIUM CHLORIDE FLUSH 0.9% 10 ML SYRINGE IVP SCH (08:48)
[2021-03-14] MEDS: ENOXAPARIN 40 MG/0.4 ML SYRINGE SUBQ SCH (08:48)
[2021-03-14] MEDS: oxyCODONE 5 MG TABLET PO PRN (09:02)
--- NOTE | 2021-03-14 11:20 | Discharge Plan ---
Discharge Plan Problem Reviewed?: Yes Disposition: Home, Self Care Condition: Stable Prescriptions: oxyCODONE [Roxicodone] 5 mg PO Q6HR PRN #6 tablet PRN Reason: Pain 5 to 7 Clindamycin [Cleocin] 450 mg PO Q8HR #90 cap L. Acidophilus/Pectin, [place] [Acidophilus Capsule] 1 each PO DAILY #10 cap Diet: Regular Activity Restrictions: Activity as Tolerated Shower Restrictions: No Driving Restrictions: No Health Concerns: You were admitted to the hospital because of infection of your left knee which grew out bacteria called and MRSA and Streptococcus. The infection has improved with draining the pus out, receiving IV antibiotics for several days and leg elevation. You are being sent home to complete a course of antibiotics; 10 more days of medicine called Clindamycin. Because an oral antibiotic can cause diarrhea, you are also being prescribed a probiotic to take while you are on the Clindamycin. Pain medications have also been prescribed for you. All prescriptions were electronically sent to your pharmacy. You completed a 3-day course of treatment for skin fungus. You have been diagnosed with Psoriasis that creates pustules. As you get them again, they should be managed the way they were here: Warm soaks til the pustule opens and drains, keeping it clean and bandaging it till it heals. You should see a health education specialist for future management of Psoriasis. Please stop using Meth! Please have follow-up of that left knee at the [facility] in the next 1 to 2 weeks. Plan of Treatment: As above. Care Goals: Improvement in symptoms and stabilization are the goals. Assessment: The patient understands and is agreeable with the plan. Additional Instructions or Follow Up instructions: If you have new or worsening symptoms, go to the [facility] or come to the emergency room. No Smoking: If you smoke, Please STOP! Call for help.
--- NOTE | 2021-03-14 12:47 | DISCHARGE SUMMARY ---
Discharge Summary Admit Date: 03/10/21 Discharge Date: 03/14/21 Discharging Provider: Dr Mile Mejia Primary Care Provider: [facility] Provider Condition at Discharge: Stable Discharge Disposition: 01 Home, Self Care - [facility] History of Present Illness: From the admission H&P of Pietro Michaud NP: This is a 58-years old male with a medical history significant for methamph etamine abuse, currently cigarette smoker, who presented to ER complaining of left knee pain and redness in left leg. Patient reports 3-4 days Hx of sores on left lower extremity and became very painful, and left knee became swollen. He has tried warm soaks and topical anti-inflammatory medications but showed little help. There is erythema and warmth going up to the inner aspect of the left thigh from nearly above left ankle, with barely swelling. pt also has multiple superficial lesions in his bilateral lower extremities which appear to be healing. ER provider did aspiration of left knee and fluid was send for culture and staining. pt reported the pain on his left knee is much improved after aspiration. Pt denies fever at home, but pt was found to have 38.1 degree fever and tachycardia with HR 110 in the ER. The lab tests show significant elevated WBC 21.6, slight elevated liver enzymes and normal range lactic acid. The Hospitalist team was called to admit this pt for further management. Discussed the care goal with the patient, patient reqests to be a Full Code. - HOSPITAL COURSE Hospital Course: (1) Sepsis He was started on iv fluids and empiric iv antibiotics. His fever, tachycardia and elevated WBC improved. The blood cultures were all negative, but the wound cultures grew MRSA and Group A Strep. (2) Septic prepatellar bursitis of left knee This was the source of sepsis. The swelling and pain improved daily. Dr. Paredes, Orthopedic Surgeon, thought he was improving well with current management, and advised that he could start increasing knee mobility. He was seen by PT and did not need DME. He may shower, covering the bandaged knee. He was discharged on oral antibiotic, a probiotic and with several tablets of Codeine prn pain. He needs to have a medical follow-up in 1-2 weeks after discharge. (3) MRSA cellulitis As per wound cultures. Contact isolation was ordered. A total of 14 days of antibiotics was planned. His knee and thigh cellulitis clinically improved. His IV Vanco was changed to po Clindamycin and he was discharged on this plus a probiotic. (4) Streptococcal cellulitis As per wound cultures. His IV Vanco was changed to po Clindamycin and he was discharged on this plus a probiotic. (5) Transaminitis His liver function tests jassi on the second day here. His AST was less than his ALT, therefore this was not a typical pattern from alcohol abuse, which he also denied. We suspected it may be due to his sepsis at presentation, or from drugs. We checked TSH to rule out hypothyroidism causing a fatty liver, CK to assess for muscle pathology, TIBC to assess for hemochromatosis, GGT to assess if this was liver or nonliver origin, and a viral Hepatitis panel. TSH, CK, TIBC were normal. GGT was abnormal at 119, indicating liver source, and his Hepatitis screen was pending. (6) Methamphetamine abuse As per history. He was seen in consultation by [employer] and he declined any assistance in rehab from substance abuse. (7) Psoriasis with pustules A large furuncle/pustule was present of the left lateral davies. He has other flat psoriatic plaques and several that have become pustules and were healing, with a central scab. We ordered warm wet soaks to the furuncle, to allow it to open, drain, then cover with dry gauze. He needs Dermatology follow-up. (8) Mold suspected exposure He described working in a moldy environment for nearly a year. He had black discoloration under his nails and states that even when he uses bacterial wipes, "a black fuzzy covering returns". We was given a 3-day course of treatment with antifungal Diflucan orally, and had improvement. - ALLERGIES Allergies/Adverse Reactions: Allergies Allergy/AdvReac Type Severity Reaction Status Date / Time No Known Drug Allergies Allergy Verified 03/10/21 08:01 - MEDICATIONS Home Medications: Ambulatory Orders Medication Instructions Recorded Confirmed Clindamycin [Cleocin] 450 mg PO Q8HR #90 cap 03/14/21 L. Acidophilus/Pectin, [place] 1 each PO DAILY #10 cap 03/14/21 [Acidophilus Capsule] oxyCODONE [Roxicodone] 5 mg PO Q4-6H PRN #6 tablet 03/14/21 - PHYSICAL EXAM AT DISCHARGE General Appearance: positive: No acute distress, Alert, Other (Thin and emac iated appearing.) Eyes Bilateral: positive: Normal inspection, EOMI ENT: positive: Other (Edentulous upper jaw. No signs of dehydration.) Neck: positive: Nml inspection, No JVD Respiratory: positive: No respiratory distress, Breath sounds nml Cardiovascular: positive: Regular rate & rhythm, No murmur Abdomen: positive: Non-tender, Nml bowel sounds, No distention Skin: positive: Warm, Dry, Skin rash (Psoriatic patches in many locations, several with central pustule.) Extremities: positive: No pedal edema, Joint swelling (Left), Other (Left knee and davies bandaged. Psoriatic patches in various areas.) Neurologic/Psychiatric: positive: Oriented x3 (Non-focal.) - LABS Result Diagrams: 03/14/21 04:39 03/14/21 04:39 - DIAGNOSTIC IMAGING Diagnostic Imaging Results: Final report reviewed - SEPSIS Current Stage of Sepsis: Sepsis Possible source of Sepsis: Skin/soft tissue Sepsis Criteria: Recorded Temperature greater than 38.3C or Less than 36C, Recorded Heart Rate greater than 90 bpm, WBC count greater than 10% bands, WBC count greater than 12,000 or less than 4000 - FOLLOW UP Follow Up: See Medical Provider in 1-2 weeks for hospital follow-up. Since he has no PCP here, is living here with his twin brother temporarily for the last several months, and his insurance will be covered at a walk-in clinic, he was advised to be seen at a walk-in clinic. His plan is to move back to [place], [place] in about 2 weeks. - TIME SPENT Time Spent in Discharge (Minutes): 60
[2021-03-14 16:44] VITALS: BP 131/79
[2021-03-15 12:19] LABS: HEPATITIS A IGM NON-REACTIVE (NON-REACTIVE); HEPATITIS B CORE ANTIBODY IGM NON-REACTIVE (NON-REACTIVE); HEPATITIS B SURFACE ANTIGEN NON-REACTIVE (NON-REACTIVE); HEPATITIS C ANTIBODY NON-REACTIVE (NON-REACTIVE)
== END 2021-03-14 15:00 | disposition home or self-care (01) | DRG 872 ==
LOC: EDUNIT# → ED 07:52 → MS3 10:13
PROVIDERS: ADMIT Nurse Practitioner Gerontology; ATTEND Internal Medicine
DX: A41.02 Sepsis due to Methicillin resistant Staphylococcus aureus (principal); L03.116 Cellulitis of left lower limb; A40.9 Streptococcal sepsis, unspecified; M71.162 Other infective bursitis, left knee; F15.10 Other stimulant abuse, uncomplicated; R74.01 Elevation of levels of liver transaminase levels; L40.1 Generalized pustular psoriasis; L02.426 Furuncle of left lower limb; F17.210 Nicotine dependence, cigarettes, uncomplicated; Z77.120 Contact with and (suspected) exposure to mold (toxic); Z57.8 Occupational exposure to other risk factors
CPT/HCPCS: 0202U; 10061; 36415; 80053; 80074; 80202; 80306; 81003; 82550; 82977; 83540; 83605; 83690; 84443; 84466; 85025; 87040; 87070; 87077; 87181; 87205; 96374; 96375; 97161; 99284; 99285; A9270; J1650; J3370; 81001; 87086

== ENCOUNTER 2022-07-10 13:30 | Outpatient (CLI) | payer MEDICAID | END 2022-07-10 13:31 | disposition critical access hospital (66) | LOC: EMS 13:30 | DX: R20.0 Anesthesia of skin (principal); B83.9 Helminthiasis, unspecified; R46.89 Other symptoms and signs involving appearance and behavior | CPT/HCPCS: A0425; A0429; A0999 ==

== ENCOUNTER 2022-07-10 13:53 | Emergency (ER) | payer MEDICAID ==
[2022-07-10 14:05] VITALS: BP 155/99
== END 2022-07-10 14:06 | disposition left against medical advice (07) ==
LOC: EDBD → EDUNIT# → ED 13:53
DX: Z53.21 Procedure and treatment not carried out due to patient leaving prior to being seen by health care provider (principal)

== ENCOUNTER 2022-07-12 22:23 | Outpatient (CLI) | payer MEDICAID | END 2022-07-12 22:24 | disposition critical access hospital (66) | LOC: EMS 22:23 | DX: R51.9 Headache, unspecified (principal); R10.9 Unspecified abdominal pain; R07.9 Chest pain, unspecified; K92.1 Melena; B83.9 Helminthiasis, unspecified | CPT/HCPCS: A0425; A0429; A0999 ==

== ENCOUNTER 2022-07-12 22:41 | Emergency (ER) | payer MEDICAID ==
[2022-07-12 23:12] LABS: BASOPHILS # (AUTO) 0.1 10^3/uL (0.0-0.1); EOSINOPHILS # (AUTO) 0.2 10^3/uL (0.0-0.7); EOSINOPHILS % (AUTO) 2.1 %; HCT - HEMATOCRIT 41.6 % (42.0-52.0); HGB - HEMOGLOBIN 14.6 g/dL (14.0-18.0); LYMPHOCYTES # (AUTO) 1.9 10^3/uL (1.5-3.5); LYMPHOCYTES % (AUTO) 22.8 %; MEAN CORPUSCULAR HGB CONC 35.1 g/dL (32.0-36.0); MEAN CORPUSCULAR VOLUME 85.6 fL (80.0-94.0); MEAN PLATELET VOLUME 10.1 fL (7.4-11.4); MONOCYTES # (AUTO) 0.7 10^3/uL (0.0-1.0); MONOCYTES % (AUTO) 8.8 %; NEUTROPHILS # (AUTO) 5.3 10^3/uL (1.5-6.6); NEUTROPHILS % (AUTO) 65.2 %; PLT - PLATELET COUNT 278 10^3/uL (130-450); RED BLOOD COUNT 4.86 10^6/uL (4.70-6.10); RED CELL DISTRIBUTION WIDTH 13.3 % (12.0-15.0); WHITE BLOOD COUNT 8.1 x10^3/uL (4.8-10.8)
[2022-07-12] MEDS ORDERED: SODIUM CHLORIDE 0.9% 1,000 ML IV STA (23:14)
--- NOTE | 2022-07-12 23:16 | ED Physician Documentation ---
History of Present Illness - Stated complaint Stated Complaint: ABD PAIN, DARK TARRY STOOLS, CP, "WORMS" - Chief complaint Chief Complaint: General - History obtained from History obtained from: Patient - Additonal information Additional information: Patient is a 59-year-old male presenting with a number of concerns including left-sided chest pain that is been on and off for a few weeks but present Since this morning which he describes as a cramping. He also reports having abdominal pain for months and more so over the last few days. The pain is all over. He denies nausea, vomiting or diarrhea. He reports having worms in his stools and feels worms under his skin. He presented with similar complaints 2 days ago to the emergency department but was reportedly argumentative and abusive with staff and left prior to being evaluated. He did present to the walk-in clinic earlier this month and labs were done including CBC and chemistries which were all normal. He also called EMS on July 06 with similar complaints but denied transport at that time. Patient does admit to methamphetamine abuse. Review of Systems Constitutional: denies: Fever Nose: denies: Congestion Cardiac: reports: Chest pain / pressure Respiratory: denies: Dyspnea, Cough GI: reports: Abdominal Pain. denies: Nausea, Vomiting : denies: Dysuria Neurologic: reports: Generalized weakness. denies: Headache PD PAST MEDICAL HISTORY - Past Medical History Past Medical History: Yes Cardiovascular: None Respiratory: None Neuro: None Endocrine/Autoimmune: None : None HEENT: None Psych: None Musculoskeletal: None Derm: None - Past Surgical History Past Surgical History: No Ortho: Other - Present Medications Home Medications: Ambulatory Orders Medication Instructions Recorded Confirmed Clindamycin [Cleocin] 450 mg PO Q8HR #90 cap 03/14/21 L. Acidophilus/Pectin, [place] 1 each PO DAILY #10 cap 03/14/21 [Acidophilus Capsule] oxyCODONE [Roxicodone] 5 mg PO Q4-6H PRN #6 tablet 03/14/21 - Allergies Allergies/Adverse Reactions: Allergies Allergy/AdvReac Type Severity Reaction Status Date / Time No Known Drug Allergies Allergy Verified 07/12/22 22:48 - Social History Does the pt smoke?: Yes Smoking Status: Current every day smoker Does the pt drink ETOH?: Yes Does the pt have substance abuse?: Yes - Immunizations Immunizations are current?: Yes Immunizations: TDAP current <10years - POLST Patient has POLST: No PD ED PE NORMAL - General General: Alert and oriented X 3, No acute distress, Well developed/nourished - HEENT HEENT: Atraumatic, Moist mucous membranes - Neck Neck: Supple, no meningeal sign - Cardiac Cardiac: No murmur, Strong equal pulses, Other (Slightly tachycardic, regular rhythm) - Respiratory Respiratory: No respiratory distress, Clear bilaterally - Abdomen Abdomen: Normal bowel sounds, Soft, Non distended, Other (Mild diffuse tenderness with no rebound, no guarding, no masses or hernias) - Back Back: No CVA TTP - Derm Derm: Warm and dry - Extremities Extremities: No edema - Neuro Neuro: Alert and oriented X 3, No motor deficit, Normal speech Results - Vitals Vitals: Vital Signs - 24 hr 07/12/22 07/12/22 07/12/22 22:45 23:05 23:23 Temperature 37.4 C Heart Rate 105 H 102 H 90 Respiratory 18 18 16 Rate Blood Pressure 143/96 H 142/97 H 142/97 H O2 Saturation 100 99 95 07/13/22 07/13/22 07/13/22 00:16 00:37 01:27 Temperature Heart Rate 84 Respiratory 17 15 16 Rate Blood Pressure O2 Saturation 96 07/13/22 01:34 Temperature 37.1 C Heart Rate 81 Respiratory 16 Rate Blood Pressure 135/88 H O2 Saturation 97 Oxygen O2 Source Room air - EKG (time done) 2259 Rate: Rate (enter#) (104) Rhythm: Sinus tachycardia [place]: Normal Ischemia: No: ST elevation c/w ischemia - Labs Labs: Laboratory Tests 07/12/22 07/12/22 07/12/22 23:00 23:00 23:00 WBC 8.1 RBC 4.86 Hgb 14.6 Hct 41.6 L MCV 85.6 MCH 30.0 MCHC 35.1 RDW 13.3 Plt Count 278 MPV 10.1 Neut # (Auto) 5.3 Lymph # (Auto) 1.9 [place] # (Auto) 0.7 Eos # (Auto) 0.2 Baso # (Auto) 0.1 Absolute Nucleated RBC 0.00 Nucleated RBC % 0.0 Sodium 138 Potassium 3.7 Chloride 103 Carbon Dioxide 26 Anion Gap 9.0 BUN 12 Creatinine 0.8 Estimated GFR (MDRD) 100 Glucose 115 H Calcium 9.0 Total Bilirubin 0.7 AST 36 ALT 29 Alkaline Phosphatase 51 Troponin I High Sens 4.3 Total Protein 7.3 Albumin 4.3 Globulin 3.0 Albumin/Globulin Ratio 1.4 Lipase 113 H Urine Color Urine Clarity Urine pH Ur Specific [place] Urine Protein Urine Glucose (UA) Urine Ketones Urine Occult Blood Urine Nitrite Urine Bilirubin Urine Urobilinogen Ur Leukocyte Esterase Ur Microscopic Review Urine Culture Comments 07/13/22 00:30 WBC RBC Hgb Hct MCV MCH MCHC RDW Plt Count MPV Neut # (Auto) Lymph # (Auto) [place] # (Auto) Eos # (Auto) Baso # (Auto) Absolute Nucleated RBC Nucleated RBC % Sodium Potassium Chloride Carbon Dioxide Anion Gap BUN Creatinine Estimated GFR (MDRD) Glucose Calcium Total Bilirubin AST ALT Alkaline Phosphatase Troponin I High Sens Total Protein Albumin Globulin Albumin/Globulin Ratio Lipase Urine Color YELLOW Urine Clarity CLEAR Urine pH 7.0 Ur Specific [place] 1.020 Urine Protein NEGATIVE Urine Glucose (UA) NEGATIVE Urine Ketones TRACE Urine Occult Blood NEGATIVE Urine Nitrite NEGATIVE Urine Bilirubin NEGATIVE Urine Urobilinogen 1 (NORMAL) Ur Leukocyte Esterase NEGATIVE Ur Microscopic Review NOT INDICATED Urine Culture Comments NOT INDICATED PD MEDICAL DECISION MAKING - ED course Complexity details: reviewed results, re-evaluated patient, d/w patient ED course: Patient presenting with numerous concerns.On record review it appears that many of his symptoms have been ongoing for at least several weeks if not longer. Vital signs are stable and labs are reassuring. In regards to his chest pain, seems atypical for ACS and EKG is reassuring with high-sensitivity troponin being normal. Symptoms have been greater than 6 hours without need for delta troponin.No risk factors for pulmonary embolism. In regards to abdominal pain, labs reviewed and imaging was obtained without acute findings. Patient has been resting comfortably. He did report concerns for worms in his stool but was unable to give a stool sample. He did report to me that he was able to give 1 at the walk-in clinic and was told that everything was normal.At this time, patient appears stable for discharge. Patient was encouraged to stop methamphetamine abuse as this may be contributing to his symptoms. Patient indicated understanding and ambulatory at discharge. 1250 - Patient sleeping. Woke him up to review results. Departure - Departure Disposition: 01 Home, Self Care Clinical Impression: Generalized abdominal pain Chest pain Qualifiers: Chest pain type: unspecified Qualified Code(s): R07.9 - Chest pain, unspecified Condition: Stable Instructions: ED Chest Pain Atypical Unkn Cause, ED Abdominal Pain Unkn Cause Male Comments: The exact cause of your symptoms is unclear. We evaluated your heart with labs and an EKG and a chest x-ray with no abnormal findings. We also evaluated your abdominal symptoms with labs and a CT scan which were all normal. You were not able to give a stool sample but you did report having recently had one which was normal. If your symptoms continue I would encourage follow-up with a primary care doctor/walk in clinic as you may need further testing such as a stress test to evaluate your heart or scopes to evaluate your intestinal tract. Discharge Date/Time: 07/13/22 01:34
[2022-07-12 23:23] LABS: ALBUMIN 4.3 g/dL (3.2-5.5); ALBUMIN/GLOBULIN RATIO 1.4 (1.0-2.2); BILIRUBIN,TOTAL 0.7 mg/dL (0.2-1.0); CREATININE 0.8 mg/dL (0.6-1.2); POTASSIUM 3.7 mmol/L (3.5-5.0); TOTAL PROTEIN 7.3 g/dL (6.7-8.2)
--- NOTE | 2022-07-12 23:31 | XRAY Report ---
PROCEDURE: Chest 1 View X-Ray INDICATIONS: CP TECHNIQUE: One view of the chest was acquired. COMPARISON: 04/20/2019 FINDINGS: Surgical changes and devices: None. Lungs and pleura: No pleural effusions or pneumothorax. Lungs are clear. Mediastinum: Mediastinal contours appear normal. Heart size is normal. Bones and chest wall: No suspicious bony lesions. Overlying soft tissues appear unremarkable. IMPRESSION: 1. No acute cardiopulmonary disease. Reviewed by: Maik Orta MD on 07/12/2022 11:37 PM PDT Approved by: Maik Orta MD on 07/12/2022 11:37 PM PDT Station ID: [id number]
--- NOTE | 2022-07-13 00:43 | CT Report ---
PROCEDURE: Abdomen/Pelvis W INDICATIONS: generalized abdominal pain CONTRAST: IV CONTRAST: Optiray 320 ml: 100 PO CONTRAST: *NO PO CONTRAST TECHNIQUE: After the administration of intravenous contrast, 5 mm thick sections acquired from the diaphragms to the symphysis. 5 mm thick coronal and sagittal reformats were acquired. For radiation dose reducti on, the following was used: automated exposure control, adjustment of mA and/or kV according to subhash ent size. COMPARISON: CT abdomen pelvis 08/29/2021. FINDINGS: Image quality: Excellent. Lung bases:There is mild dependent atelectasis bilaterally. Heart: Heart is normal in size. ABDOMEN: Liver: No mass lesion. There is mild focal fatty infiltration in the anterior left hepatic lobe. Gallbladder: Within normal limits without calcified gallstones. Biliary ducts: No biliary ductal dilatation. Pancreas: Unremarkable. Spleen: Normal in size. Adrenal Glands: No adrenal nodules. Kidneys and Ureters: No hydronephrosis. Stomach and Bowel: Stomach, small bowel loops, and colon are normal in caliber and wall thickness. T here is colonic diverticulosis without acute diverticulitis. Peritoneum: No abnormal intraperitoneal fluid. No free air. Ventral Wall: No hernia. Abdominal Nodes: No retroperitoneal or mesenteric adenopathy by size criteria. Vessels: Aorta and inferior vena cava are normal in size. PELVIS: Pelvic Organs: Unremarkable. Bladder: Unremarkable. Pelvic Nodes: No enlarged lymph nodes. Miscellaneous: No inguinal hernias are seen. Bones: Visualized osseous structures demonstrate no suspicious focal lesions. IMPRESSION: 1. No definite acute intra-abdominal abnormality. Specifically, there is colonic diverticulosis witho ut acute diverticulitis. Reviewed by: Maik Orta MD on 07/13/2022 12:42 AM PDT Approved by: Maik Orta MD on 07/13/2022 12:42 AM PDT Station ID: [id number]
[2022-07-13 00:47] LABS: BILIRUBIN,URINE NEGATIVE (NEGATIVE); CLARITY,URINE CLEAR (CLEAR); GLUCOSE, URINE (UA) NEGATIVE (NEGATIVE); KETONES,URINE (UA) TRACE mg/dL (NEGATIVE); LEUKOCYTE ESTERASE, URINE NEGATIVE (NEGATIVE); NITRITE,URINE NEGATIVE (NEGATIVE); OCCULT BLOOD,URINE NEGATIVE (NEGATIVE); PROTEIN,URINE NEGATIVE (NEGATIVE); UROBILINOGEN,URINE 1 (NORMAL) E.U./dL (NORMAL)
[2022-07-13 01:35] VITALS: BP 135/88
== END 2022-07-13 01:34 | disposition home or self-care (01) ==
LOC: EDUNIT# → ED 22:41
DX: R07.9 Chest pain, unspecified (principal); R10.9 Unspecified abdominal pain; F17.200 Nicotine dependence, unspecified, uncomplicated
CPT/HCPCS: 36415; 71045; 74177; 80053; 81003; 83690; 84484; 85025; 93005; 96360; 99284; Q9967; 81001; 87086; 87177; 87328

== ENCOUNTER 2022-07-17 03:28 | Outpatient (CLI) | payer MEDICAID | END 2022-07-17 03:29 | disposition critical access hospital (66) | LOC: EMS 03:28 | DX: R51.9 Headache, unspecified (principal); R46.89 Other symptoms and signs involving appearance and behavior | CPT/HCPCS: A0425; A0429; A0999 ==

== ENCOUNTER 2022-07-17 03:57 | Emergency (ER) | payer MEDICAID ==
--- NOTE | 2022-07-17 04:06 | ED Physician Documentation ---
History of Present Illness - Stated complaint Stated Complaint: GRIFFIN/CONGESTION - History obtained from History obtained from: Patient, EMS - History of Present Illness Timing: Chronic Pain level now: 8 Improved by: no ameliorating factors - Additonal information Additional information: BIBA. Patient has long and rambling HPI; HPI/ROS is difficult to obtain due to his tangential thoughts as well as recurrent c/o (answers many questions by returning back to one of a few chief concerns he has even when the question was regarding something else). His concerns are: generalized headache since 03:00 (although later in HPI he says he has had this, along with his other symptoms, for "about two years" (per patient), "pinworms coming out of my nose", "moving veins all over my body", neck poain, right shoulder pain, "kidneys" (when I ask him to clarify, he angrily answers "THEY HURT!"). He is concerned about exposure to black mold that occurred two years ago. This is his fourth [facility] ED visit this month. On his first visit (06/23/22), he banged on the ambulance bay door and when he was asked regarding his symptoms, he insisted on talking only to the doctor; he was told to register up front, which he did with chief complaint of "LIFE AND ", and then left without being seen within 10-15 minutes of arrival. His second visit does not have records available, likely due to [facility] downtime. His most recent visit was one week ago and significant w/u undertaken including blood tests, CT A/P chest xray, EKG; there were no significant nor diagnostic findings. In reference to this visit, patient currently tells me "no one ever finds anything. I went to the clinic the other day and they suck, too." He indicates blood tests and a stool sample were taken when he was at clinic recently and there were no abnormal results he recalls being told of. Review of Systems Cardiac: reports: Reviewed and negative Respiratory: reports: Reviewed and negative GI: reports: Abdominal Pain ("I hurt everwhere" (per patient)). denies: Vomiting, Diarrhea PD PAST MEDICAL HISTORY - Past Medical History Cardiovascular: None Respiratory: None Neuro: None Endocrine/Autoimmune: None : None HEENT: None Psych: None Musculoskeletal: None Derm: None - Past Surgical History Past Surgical History: No Ortho: Other - Present Medications Home Medications: Ambulatory Orders Medication Instructions Recorded Confirmed No Known Home Medications 07/17/22 07/17/22 - Allergies Allergies/Adverse Reactions: Allergies Allergy/AdvReac Type Severity Reaction Status Date / Time No Known Drug Allergies Allergy Verified 07/17/22 04:17 - Social History Does the pt smoke?: Yes Smoking Status: Current every day smoker Does the pt drink ETOH?: Yes Does the pt have substance abuse?: Yes - Immunizations Immunizations are current?: Yes Immunizations: TDAP current <10years - POLST Patient has POLST: No PD ED PE NORMAL - Vitals Vital signs reviewed: Yes - General General: Alert and oriented X 3, No acute distress, Well developed/nourished, Other (mild/moderate pressured speech, rambling and tangential, requires redirection several times) - HEENT HEENT: PERRL, Moist mucous membranes, Other (normal nasal exam including bilateral nares) - Neck Neck: Supple, no meningeal sign - Cardiac Cardiac: RRR, No murmur - Respiratory Respiratory: No respiratory distress, Clear bilaterally - Abdomen Abdomen: Soft, Non tender - Neuro Neuro: Alert and oriented X 3 PD ED PE EXPANDED - Psych Psych: Anxious, Pressured speech, Other (tangential) Results - Vitals Vitals: Oxygen O2 Source Room air PD MEDICAL DECISION MAKING - ED course Complexity details: reviewed old records, re-evaluated patient, considered differential, d/w patient ED course: presents with many c/o which are all chronic/recurrent, with elements of parasitosis and delusions. He insists he has pinworms coming from his nose for the past several weeks, possibly months. He insists he needs to see a "specialist" tonight regarding this "if you can't figure it out" because he says worms can eventually get into one's brain. He says he has "moving veins" , mostly in his arms, for months. he has headache, neck , back, "kidney" pain, chronic abdominal pain although does not have this on tonight HPI/ROS. He had recent w/u (one week ago in this ED as noted in HPI) without remarkable/concerning findings. He is given ibuprofen for his headache followed by 2mg PO lorazepam which had the desired effects (reported resolution of his headache on reevaluation prior to d/c, and he was calm and even slept after the lorazepam). No emergent testing is indicated at this time. Instructed to follow up with primary care provider or walk-in clinic Departure - Departure Disposition: 01 Home, Self Care Clinical Impression: Headache Condition: Good Instructions: ED Cephalgia Unspecified Comments: The results of the tests performed 5 days ago in this emergency department were unremarkable; based on the ongoing nature of your symptoms, further emergent testing is not indicated. Please follow up with your primary care provider or an outpatient clinic for reevaluation Discharge Date/Time: 07/17/22 07:10
[2022-07-17] MEDS ORDERED: IBUPROFEN 600 MG TABLET PO STA (04:24)
[2022-07-17] MEDS ORDERED: LORazepam 0.5 MG TABLET PO STA (04:37)
[2022-07-17 06:42] VITALS: BP 130/91
== END 2022-07-17 07:10 | disposition home or self-care (01) ==
LOC: EDUNIT# → ED 03:57
DX: R51.9 Headache, unspecified (principal); F17.200 Nicotine dependence, unspecified, uncomplicated
CPT/HCPCS: 99283; 99284; A9270

== ENCOUNTER 2022-08-02 20:48 | Emergency (ER) | payer MEDICAID ==
[2022-08-02 20:59] VITALS: BP 167/78
[2022-08-02] MEDS ORDERED: ceFAZolin 1 GM VIAL IM STA (21:06)
--- NOTE | 2022-08-02 21:09 | ED Physician Documentation ---
PD HPI SKIN - Stated complaint Stated Complaint: L THIGH WOUND/"Worms" - Chief complaint Chief Complaint: Laceration - History obtained from History obtained from: Patient - Additional information Additional information: 59-year-old gentleman with methamphetamine abuse presents convinced he has worms all over his body. He has a scrape on the left thigh which he feels like a worm is about to pop out of. He sees them in the toilet every time he poops. There are both large and small worms. The large worms will then go ahead and eat the small worms in the toilet. The worms are coming out of his eyes. They come out of his nose. Sometimes he feels like the worm comes out of his anus and then pops back in like a "prairie dog." Review of Systems Constitutional: denies: Fever, Chills Nose: reports: Reviewed and negative Cardiac: reports: Reviewed and negative PD PAST MEDICAL HISTORY - Past Medical History Cardiovascular: None Respiratory: None Neuro: None Endocrine/Autoimmune: None : None HEENT: None Psych: None Musculoskeletal: None Derm: None - Past Surgical History Past Surgical History: No Ortho: Other - Present Medications Home Medications: Ambulatory Orders Medication Instructions Recorded Confirmed Albendazole 2 tab PO ONCE #4 tablet 08/02/22 cephALEXin [Keflex] 500 mg PO Q6H #28 cap 08/02/22 - Allergies Allergies/Adverse Reactions: Allergies Allergy/AdvReac Type Severity Reaction Status Date / Time No Known Drug Allergies Allergy Verified 08/02/22 20:57 - Social History Does the pt smoke?: Yes Smoking Status: Current every day smoker Does the pt drink ETOH?: Yes Does the pt have substance abuse?: Yes - Immunizations Immunizations are current?: Yes Immunizations: TDAP current <10years - POLST Patient has POLST: No PD ED PE NORMAL - Vitals Vital signs reviewed: Yes - General General: Alert and oriented X 3, Other (Smells heavily of both tobacco and methamphetamine.) - HEENT HEENT: PERRL, EOMI - Neck Neck: Supple, no meningeal sign, No bony TTP - Back Back: No CVA TTP, No spinal TTP - Derm Derm: Normal color, Warm and dry, Other (He has an abrasion on the medial mid thigh on the left with mild surrounding cellulitis. There is no palpable worm.) - Neuro Neuro: Alert and oriented X 3, Normal speech Results - Vitals Vitals: Vital Signs - 24 hr 08/02/22 20:53 Temperature 36.9 C Heart Rate 68 Respiratory 18 Rate Blood Pressure 167/78 H O2 Saturation 99 Oxygen O2 Source Room air PD MEDICAL DECISION MAKING - ED course Complexity details: considered differential (real but invisible worms, vs meth use, more likely.), d/w patient (will tx for poss worms, but should probably stop meth use.) Departure - Departure Disposition: 01 Home, Self Care Clinical Impression: Parasitosis Cellulitis Qualifiers: Site of cellulitis: extremity Site of cellulitis of extremity: lower extremity Laterality: left Qualified Code(s): L03.116 - Cellulitis of left lower limb Condition: Good Record reviewed to determine appropriate education?: Yes Instructions: Cellulitis Dc Prescriptions: Albendazole 2 tab PO ONCE #4 tablet cephALEXin [Keflex] 500 mg PO Q6H #28 cap Comments: As discussed, for pinworm treatment you do need to repeat the treatment in 2 weeks. As such I am prescribing 2 courses. Also some antibiotics for concern for early infection of the scrape on your left thigh. Follow-up with your primary care physician. Return for new or worsening symptoms. Discharge Date/Time: 08/02/22 21:25
== END 2022-08-02 21:25 | disposition home or self-care (01) ==
LOC: EDUNIT# → ED 20:48
DX: B89 Unspecified parasitic disease (principal); L03.116 Cellulitis of left lower limb; F17.200 Nicotine dependence, unspecified, uncomplicated
CPT/HCPCS: 96372; 99282; 99283

== ENCOUNTER 2024-04-21 00:14 | Outpatient (CLI) | payer MEDICAID | END 2024-04-21 23:59 | disposition critical access hospital (66) | LOC: EMS 00:14 | DX: R07.89 Other chest pain (principal); M54.9 Dorsalgia, unspecified | CPT/HCPCS: A0425; A0429; A0999 ==

== ENCOUNTER 2024-04-26 13:20 | Emergency (ER) | payer MEDICAID ==
[2024-04-26 13:40] VITALS: O2SAT 99
--- NOTE | 2024-04-26 15:05 | ED Physician Documentation ---
PD HPI UPPER EXT INJURY - Stated complaint Stated Complaint: RT SHOULDER PX - Chief complaint Chief Complaint: Ext Problem - Additonal information Additional information: 61-year-old male with history of a right bicep rupture, bacteremia presents emergency department for right shoulder pain. Patient says he was here about a week ago where he was given Flexeril and lidocaine patch to his right shoulder and he has been doing these medications by the clock with little to no relief of his right shoulder pain. No new trauma or falls. Also endorses and some mild chest pain that he says he feels is attributed to his right shoulder pain. No fevers or chills no nausea or vomiting. Patient is restless and antsy in the chair also says that he has been noticing bugs crawling out of his skin recently. I do not see any bugs crawling out of his skin I do see some old scabs scattered throughout his forearms and hands. PD PAST MEDICAL HISTORY - Past Medical History Cardiovascular: None Respiratory: None Neuro: None Endocrine/Autoimmune: None : None HEENT: None Psych: None Musculoskeletal: Other Derm: None - Past Surgical History Past Surgical History: Yes Ortho: Other - Present Medications Home Medications: Ambulatory Orders Medication Instructions Recorded Confirmed Cyclobenzaprine [Flexeril] 10 mg PO TID PRN #20 tablet 04/21/24 Lidocaine Patch 5% [Lidoderm Patch] 1 patch TOP DAILY PRN #10 patch 04/21/24 - Allergies Allergies/Adverse Reactions: Allergies Allergy/AdvReac Type Severity Reaction Status Date / Time No Known Drug Allergies Allergy Verified 04/26/24 13:31 - Social History Does the pt smoke?: Yes Smoking Status: Current every day smoker Does the pt drink ETOH?: Yes Does the pt have substance abuse?: Yes - Immunizations Immunizations are current?: Yes Immunizations: TDAP current <10years - POLST Patient has POLST: No PD ED PE NORMAL - Vitals Vital signs reviewed: Yes - General General: No acute distress, Other (Patient is somnolent and frequently falls asleep during interview, Appears underweight.) - HEENT HEENT: Atraumatic - Neck Neck: Supple, no meningeal sign, No bony TTP, No adenopathy - Cardiac Cardiac: RRR - Back Back: No CVA TTP - Derm Derm: Other (Multiple scabs scattered throughout both forearms and hands) - Extremities Extremities: Other (Right upper extremity right biceps significantly smaller than left bicep full range of motion to right shoulder right elbow no swelling to right elbow, no deformity to right shoulder or clavicle strong radial pulse.) Results - Vitals Vitals: Vital Signs - 24 hr 04/26/24 04/26/24 13:27 16:49 Temperature 36.4 C L 36.7 C Heart Rate 101 H 99 Respiratory 18 16 Rate Blood Pressure 132/91 H 128/90 H O2 Saturation 99 99 Oxygen O2 Source Room air - EKG (time done) 1514 EKG releavant findings:: EKG personally interpreted by author of this note. 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 Patient is frequently falling asleep during our interview he had a hard time staying awake long enough for me to chat with him about his x-ray findings. He is resting comfortably. He was given a shot of Toradol here in the emergency department which patient does report significantly improved his pain and symptoms. EKG was complete for further evaluation and did not show any ST elevation or T wave inversions. X-rays completed of his right shoulder and he was found to have no acute bony abnormality but he did have moderate acromioclavicular both glenohumeral joint degeneration. Patient was informed of these findings and was told to follow-up with primary care provider for physical therapy referral as well as possible Ortho outpatient for further evaluation and possible steroid injection. Patient was told to continue to manage his pain with [id number] medications as well as a sling to his right shoulder to help with pain until he is able to get in with all questions answered patient safe for discharge at this time he is told to continue to use his shoulder as well as his right elbow so that joints do not lock up. Departure - Departure Disposition: 01 Home, Self Care Clinical Impression: Right shoulder pain, DJD of AC (acromioclavicular) joint Instructions: ED Shoulder Pain [facility] Follow-Up: Ino Hubbard MD [Provider Admit Priv/Credential] - Comments: Thank for trusting us with your care is very important that you follow-up with a primary care provider had strongly encourage you to get established with 1 as soon as possible [place]rays are completed of your right shoulder and it appears that you have moderate acromioclavicular and mild glenohumeral joint degeneration. This is essentially arthritis we have placed you in a shoulder sling to help with the pain over the next couple days but make sure that you are taking your arm out of the sling f requently to do shoulder exercises and stretching so that your shoulder does not freeze as this can happen if you quit using her shoulder and elbow altogether. You can take 1000 mg of Tylenol every 8 hours and continue with taking 600 mg ibuprofen every 6 hours as needed for pain and discomfort apply 20 minutes of ice 1 hour off and follow-up with primary care provider to see if you get a physical therapy referral. I have also given you the contact information for [facility] surgeon for further evaluation and discussion of your ongoing right shoulder pain. Forms: PCP List Discharge Date/Time: 04/26/24 16:50
[2024-04-26] MEDS: KETOROLAC 30 MG/ML VIAL IM STA (15:30)
[2024-04-26] MEDS: ACETAMINOPHEN 325 MG TABLET PO STA (15:30)
--- NOTE | 2024-04-26 15:42 | XRAY Report ---
PROCEDURE: Shoulder 2+V RT INDICATIONS: rt shoulder pain TECHNIQUE: 3 views of the shoulder were acquired. COMPARISON: None. FINDINGS: Bones: No fractures or dislocations. Moderate acromioclavicular and mild glenohumeral joint degener ation. No suspicious bony lesions. Visualized ribs appear intact. Soft tissues: No suspicious soft tissue calcifications. The visualized lungs are within normal limi ts. IMPRESSION: No acute bony abnormality. Moderate acromioclavicular and mild glenohumeral joint degeneration. Reviewed by: Yusef Melton MD on 04/26/2024 2:40 PM DIEGO Approved by: Yusef Melton MD on 04/26/2024 2:40 PM AKJULIO CÉSAR Station ID: [id number]
[2024-04-26 16:52] VITALS: BP 128/90
== END 2024-04-26 16:50 | disposition home or self-care (01) ==
LOC: ED 13:20
DX: M19.012 Primary osteoarthritis, left shoulder (principal); M19.011 Primary osteoarthritis, right shoulder; F17.200 Nicotine dependence, unspecified, uncomplicated
CPT/HCPCS: 73030; 93005; 96372; 99283; 99284; A9270